=== PATIENT | male | born 1975 | race African-American/Black ===

== ENCOUNTER 2019-08-04 22:59 | Inpatient (IN) | payer SELFPAY ==
--- NOTE | 2019-08-05 00:41 | PDOC ---
History of Present Illness - General Chief Complaint: Pain Stated Complaint: ABD PAIN Time Seen by Provider: 08/05/19 00:41 - History of Present Illness Initial Comments: 08/05/19 00:41 Mr. Membreno is a 44 yo male w/ pmh of NIDDM who presents for evaluation of 1 day history of abdominal pain w/ Nausea and green vomiting multiple times. Reports he has never had this in the past. Denies any other symptoms at this time. Denies travel or sick contacts. The patient denies chest pain, shortness of breath, headache and dizziness. Denies fever, chills, diarrhea and constipation. Denies dysuria, frequency, urgency and hematuria. Past History - Past Medical History Allergies/Adverse Reactions: Allergies Allergy/AdvReac Type Severity Reaction Status Date / Time No Known Allergies Allergy Verified 08/04/19 23:04 Home Medications: Ambulatory Orders Hydrochlorothiazide [Hctz -] 25 mg PO DAILY 07/10/14 Amlodipine Besylate 10 mg PO 08/05/19 COPD: No Diabetes: Yes HTN: Yes - Psycho Social/Smoking Cessation Hx Smoking History: Never smoked Review of Systems - Review of Systems Comments:: 08/05/19 00:41 GENERAL/CONSTITUTIONAL: No fever or chills. No weakness. HEAD, EYES, EARS, NOSE AND THROAT: No change in vision. No ear pain or discharge. No sore throat. CARDIOVASCULAR: No chest pain or shortness of breath RESPIRATORY: No cough, wheezing, or hemoptysis. GASTROINTESTINAL: +Nonspecific abdominal pain w/ N/V as described. No diarrhea or constipation. GENITOURINARY: No dysuria, frequency, or change in urination. MUSCULOSKELETAL: No joint or muscle swelling or pain. No neck or back pain. SKIN: No rash NEUROLOGIC: No headache, vertigo, loss of consciousness, or change in strength/ sensation. ENDOCRINE: No increased thirst. No abnormal weight change HEMATOLOGIC/LYMPHATIC: No anemia, easy bleeding, or history of blood clots. ALLERGIC/IMMUNOLOGIC: No hives or skin allergy. *Physical Exam - Vital Signs Last Vital Signs Temp Pulse Resp BP Pulse Ox 97.3 F L 94 H 18 163/115 H 98 08/04/19 23:02 08/04/19 23:02 08/04/19 23:02 08/04/19 23:02 08/04/19 23:02 - Physical Exam Comments: 08/05/19 00:41 GENERAL: Awake, alert, and fully oriented, in no acute distress HEAD: No signs of trauma, normocephalic, atraumatic EYES: PERRLA, EOMI, sclera anicteric, conjunctiva clear ENT: Auricles normal inspection, hearing grossly normal, nares patent, oropharynx clear without exudates. Moist mucosa NECK: Normal ROM, supple, no lymphadenopathy, JVD, or masses LUNGS: No distress, speaks full sentences, clear to auscultation bilaterally HEART: Regular rate and rhythm, normal S1 and S2, no murmurs, rubs or gallops, peripheral pulses normal and equal bilaterally. ABDOMEN: +Diffuse abdominal TTP. Soft, normoactive bowel sounds. No guarding, no rebound. No masses EXTREMITIES: Normal inspection, Normal range of motion, no edema. No clubbing or cyanosis. NEUROLOGICAL: Cranial nerves II through XII grossly intact. Normal speech, normal gait, no focal sensorimotor deficits SKIN: Warm, Dry, normal turgor, no rashes or lesions noted. ED Treatment Course - LABORATORY CBC & Chemistry Diagram: 08/05/19 10:50 08/05/19 11:48 Medical Decision Making - Medical Decision Making 08/05/19 01:00 Mr. Membreno is a 44 yo male w/ pmh as described who presents for evaluation of symptoms concerning for cholecystitis vs. viral illness vs. appendicitis. Patient evaluated with bedside US which revealed concern for cholecystitis w/ wall thickening and pericholecystic edema. Patient will be evaluated with formal US and laboratory evaluation. Morphine, fluids, zofran ordered for symptomatic relief. 08/05/19 03:47 Patient noted to have elevated Lipase as below. Patient currently pending CT abd /pelvis for r/o surgical process. Patient will be admitted for pancreatitis. 08/05/19 05:38 CT significant for severe acute pancreatitis with secondary duodenal inflammation and possible pancreatic tail necrosis. Laboratory Results - last 24 hr 08/05/19 08/05/19 08/05/19 01:15 01:15 01:15 WBC 12.3 H RBC 6.00 H Hgb 16.8 Hct 52.0 H MCV 86.6 MCH 27.9 MCHC 32.2 RDW 12.4 Plt Count 362 MPV 8.5 Absolute Neuts (auto) 10.7 H Neutrophils % 86.6 H Lymphocytes % 5.5 L Monocytes % 7.1 Eosinophils % 0.0 Basophils % 0.8 Nucleated RBC % 0 PT with INR 12.60 INR 1.07 PTT (Actin FS) 28.3 Sodium 134 L Potassium 4.0 Chloride 93 L Carbon Dioxide 21 Anion Gap 20 H BUN 10.6 Creatinine 1.1 Est GFR (CKD-EPI)AfAm 92.81 Est GFR (CKD-EPI)NonAf 80.08 Random Glucose 385 H Calcium 9.6 Total Bilirubin 3.3 H AST 80 H ALT 90 H Alkaline Phosphatase 85 Total Protein 8.3 H Albumin 4.4 Lipase Blood Type Antibody Screen 08/05/19 08/05/19 01:15 01:15 WBC RBC Hgb Hct MCV MCH MCHC RDW Plt Count MPV Absolute Neuts (auto) Neutrophils % Lymphocytes % Monocytes % Eosinophils % Basophils % Nucleated RBC % PT with INR INR PTT (Actin FS) Sodium Potassium Chloride Carbon Dioxide Anion Gap BUN Creatinine Est GFR (CKD-EPI)AfAm Est GFR (CKD-EPI)NonAf Random Glucose Calcium Total Bilirubin AST ALT Alkaline Phosphatase Total Protein Albumin Lipase 4798 H Blood Type A POSITIVE Antibody Screen Negative Discharge - Discharge Information Problems reviewed: Yes Clinical Impression/Diagnosis: Pancreatitis Qualifiers: Chronicity: acute Pancreatitis type: unspecified pancreatitis type Acute pancreatitis complication: unspecified Qualified Code(s): K85.90 - Acute pancreatitis without necrosis or infection, unspecified - Admission Yes - Follow up/Referral - Patient Discharge Instructions - Post Discharge Activity
[2019-08-05] MEDS ORDERED: morphine CARPU-JECT 4 MG/1 ML DISP.SYRIN IVPUSH ONE ×2 (00:47→03:48)
[2019-08-05] MEDS ORDERED: SODIUM CHLORIDE 1,000 ML IV STA (00:48)
[2019-08-05] MEDS ORDERED: ONDANSETRON 4 MG/2 ML VIAL IVPUSH ONE (00:49)
--- NOTE | 2019-08-05 00:58 | PDOC ---
Attending Attestation - Resident Resident Name: Ildefonso Gonzalez - ED Attending Attestation I have performed the following: I have examined & evaluated the patient, The case was reviewed & discussed with the resident, I agree w/resident's findings & plan - HPI HPI: 08/05/19 03:18 see resident hpi - Physicial Exam PE: 08/05/19 03:18 agree with resident exam - Medical Decision Making 08/05/19 03:18 44 yo male with ruq/midepigastric abd pain labs c/w acute pancreatitis, bedside US suggests biliary disease will admit, npo, ivf analgesics
[2019-08-05] MEDS ORDERED: morphine SULFATE 4 MG/ML VIAL ONE ×2 (01:10→03:51)
[2019-08-05] MEDS ORDERED: ONDANSETRON 4 MG/2 ML VIAL ONE (01:10)
[2019-08-05 01:23] LABS: BASO % 0.8 % (0-2.0); HEMOGLOBIN 16.8 GM/dL (11.7-16.9); LYMPH % 5.5 % (8-40); MCH 27.9 pg (25.7-33.7); MCHC 32.2 g/dl (32.0-35.9); MEAN CELL VOLUME 86.6 fl (80-96); MEAN PLT VOLUME 8.5 fl (7.5-11.1); MONO % 7.1 % (3.8-10.2); NEUT % 86.6 % (42.8-82.8); PLATELET COUNT 362 K/MM3 (134-434); RDW 12.4 % (11.9-15.9); WHITE BLOOD COUNT 12.3 K/mm3 (4.0-10.0)
[2019-08-05 01:32] LABS: INR 1.07 (0.83-1.09); PROTHROMBIN TIME (PATIENT) 12.6 SEC (9.7-13.0)
[2019-08-05 01:34] LABS: ACTIVATED PTT 28.3 SECONDS (25.2-36.5)
[2019-08-05 01:49] LABS: ALBUMIN 4.4 g/dl (3.4-5.0); BILIRUBIN,TOTAL 3.3 mg/dL (0.2-1); BLOOD UREA NITROGEN 10.6 mg/dL (7-18); CALCIUM 9.6 mg/dL (8.5-10.1); CREATININE 1.1 mg/dL (0.55-1.3); TOT PROT 8.3 g/dl (6.4-8.2)
[2019-08-05] MEDS ORDERED: PIPERACILLIN/TAZOB 3.375 GM 3.375 GM in DEXTROSE 5%-WATER - 50 ML IVPB ONE (05:44)
--- NOTE | 2019-08-05 05:55 | PN ---
Teaching Attending Note Name of Resident: Paulo Rodríguez ATTENDING PHYSICIAN STATEMENT I saw and evaluated the patient. I reviewed the resident's note and discussed the case with the resident. I agree with the resident's findings and plan as documented. SUBJECTIVE: Patient is a 44 year old man with PMH of NIDDM and HTN who presents for evaluation of 1 day history of abdominal pain associated with nausea and several episodes vomiting of green material .Reports he has never had this in the past. Denies any other symptoms at this time. Denies travel or sick contacts. The patient denies chest pain, shortness of breath, headache and dizziness. Denies fever, chills, diarrhea and constipation. Denies dysuria, frequency, urgency and hematuria. Denies smoking, alcohol abuse or illicit drug use. Travelled to [facility] 2 months ago. Denies smoking, alcohol abuse or illicit drug use. OBJECTIVE: Alert Vital Signs Period Temp Pulse Resp BP Sys/Burns Pulse Ox Last 24 Hr 97.3 F 80-94 16-18 159-163/106-115 98-99 HEENT: No Jaundice, eye redness or discharge, PERRLA, EOMI. Normocephalic, atraumatic. External ears are normal and hearing is grossly intact. No nasal discharge. Neck: Supple, nontender. No palpable adenopathy or thyromegaly. No JVD Chest: Good effort. Clear to auscultation and percussion. Heart: Regular. No S3, rub or murmur Abdomen: Not distended, soft, diffuse tenderness and no HSM. No rebound or guarding. Normal bowel sounds. Ext: Peripheral pulses intact. No leg edema. Skin: Warm and dry. No petechiae, rash or ecchymosis. Neuro: Alert. Oriented x3. CN 2-12 grossly intact. Sensation grossly intact in all four extremities and DTR are symmetric. Psych: Appropriate mood and affect. Good insight. Current Medications Generic Name Dose Route Start Last Admin Trade Name Freq PRN Reason Stop Dose Admin Piperacillin Sod/Tazobactam 50 mls @ 100 mls/hr 08/05/19 05:44 Sod 3.375 gm/ Dextrose IVPB 08/05/19 06:13 ONCE ONE Protocol Home Medications Medication Instructions Recorded Hydrochlorothiazide [Hctz -] 25 mg PO DAILY 07/10/14 Abnormal Lab Results 09/08/05/19 08/05/19 01:15 01:15 01:15 WBC 12.3 H RBC 6.00 H Hct 52.0 H Absolute Neuts (auto) 10.7 H Neutrophils % 86.6 H Lymphocytes % 5.5 L Sodium 134 L Chloride 93 L Anion Gap 20 H Random Glucose 385 H Total Bilirubin 3.3 H AST 80 H ALT 90 H Total Protein 8.3 H Lipase 4798 H ASSESSMENT AND PLAN: 1. Pancreatitis - Cause unclear. Elevated LFTs suggest gallstone pancreatitis. Results of CT abdomen/pelvis pending. Will get lipid profile, LDH and treat with IV Morphine, LR at 200 ml/hour and Zofran PRN. Consult GI. Trend LFTs and get RUQ sonogram. Leukocytosis may be stress related but will get UA and CXR. Get EKG before additional zofran - we could not locate the EKG done in the ER. Erythrocytosis ,ay signal volume depletion - will repeat CBC after adequate hydration. 2. Uncontrolled DM Had a high anion gap on initial BMP - Repeat BMP pending. If AG still high, will get an ABG. For now, will give stat dose of IV insulin, hold the home diabetes drugs and implement sliding scale insulin regimen. Provide comprehensive diabetes care with patient teaching and counseling about the importance of adherence to prescribed diabetes regimen, euglycemia, eye care and foot care. 3. Uncontrolled Hypertension - Restart suitable outpatient antihypertensive drugs when clinically appropriate - hold HCTZ. 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 Nonpharmacologic measures to control hypertension like weight loss, salt restriction and exercise discussed. Importance of adherence to treatment regimen and attainment of normotension emphasized. 4. DVT prophylaxis - Lovenox 40 mg SQ q 24 hours. 5. Advance directives - Full code
[2019-08-05] MEDS ORDERED: PIPERACILLIN/TAZOB 3.375 GM 3.375 GM/50 ML BAG IVPB ONE (05:58)
[2019-08-05] MEDS ORDERED: LACTATED RINGERS SOLUTION 1,000 ML IV SCH (06:30)
[2019-08-05] MEDS ORDERED: ONDANSETRON 4 MG/2 ML VIAL IVPUSH PRN ×2 (06:33→06:55)
[2019-08-05] MEDS ORDERED: morphine CARPU-JECT 4 MG/1 ML DISP.SYRIN IVPUSH PRN (06:36)
[2019-08-05] MEDS ORDERED: MORPHINE SULFATE 2 MG/ML VIAL IVPUSH PRN (06:54)
[2019-08-05] MEDS ORDERED: INSULIN (NOVOLOG) ASPART 100 UNITS/ML 10ML VIAL SQ ONE (07:59)
--- NOTE | 2019-08-05 08:08 | HP ---
CHIEF COMPLAINT: abdominal pain PCP: unknown HISTORY OF PRESENT ILLNESS: 44 y.o. M PMH HTN, DM2 presenting with 10/10 midepigastric and lower midline abdominal pain. Pain was sudden in onset a few minutes after patient ate some fruit and vegetables yesterday. The pain does not radiate and is very sharp. Patient had 2 episodes bilious but nonbloody emesis yesterday and nausea. Appetite is severely diminished. Pt has not had any traumas, no insect or scorpion bites, no recent infections (URI/flu/ GI viral illnesses)/ gallstones/ alcohol binge drinking episodes. On ROS Denies CP/ SOB/ fevers/ TERRAZAS/ chills/ diarrhea/ weight changes/ bowel changes/ myalgias. ER course was notable for: (1) Morphine 4mg x 2 doses (2) 1 bolus NS (3) Zofran 4mg Recent Travel: recently returned from [facility] 2 months ago PAST MEDICAL HISTORY: as per HPI PAST SURGICAL HISTORY: denies Social History: from [facility], came to [place] in 2000. Sexually active w/ 1 partner. Smoking:denies Alcohol: drinks 1-2 beers on weekends only Drugs: denies Allergies No Known Allergies Allergy (Verified 08/04/19 23:04) HOME MEDICATIONS: Home Medications Medication Instructions Recorded Hydrochlorothiazide [Hctz -] 25 mg PO DAILY 07/10/14 REVIEW OF SYSTEMS CONSTITUTIONAL: Absent: fever, chills, diaphoresis, generalized weakness, malaise, loss of appetite, weight change HEENT: Absent: rhinorrhea, nasal congestion, throat pain, throat swelling, difficulty swallowing, mouth swelling, ear pain, eye pain, visual changes CARDIOVASCULAR: Absent: chest pain, syncope, palpitations, irregular heart rate, lightheadedness , peripheral edema RESPIRATORY: Absent: cough, shortness of breath, dyspnea with exertion, orthopnea, wheezing, stridor, hemoptysis GASTROINTESTINAL: Absent: abdominal pain, abdominal distension, nausea, vomiting, diarrhea, constipation, melena, hematochezia GENITOURINARY: Absent: dysuria, frequency, urgency, hesitancy, hematuria, flank pain, genital pain MUSCULOSKELETAL: Absent: myalgia, arthralgia, joint swelling, back pain, neck pain SKIN: Absent: rash, itching, pallor HEMATOLOGIC/IMMUNOLOGIC: Absent: easy bleeding, easy bruising, lymphadenopathy, frequent infections ENDOCRINE: Absent: unexplained weight gain, unexplained weight loss, heat intolerance, cold intolerance NEUROLOGIC: Absent: headache, focal weakness or paresthesias, dizziness, unsteady gait, seizure, mental status changes, bladder or bowel incontinence PSYCHIATRIC: Absent: anxiety, depression, suicidal or homicidal ideation, hallucinations. PHYSICAL EXAMINATION Vital Signs - 24 hr 08/04/19 08/05/19 23:02 04:59 Temperature 97.3 F L Pulse Rate 94 H Pulse Rate [ 80 Left] Respiratory 18 16 Rate Blood Pressure 163/115 H Blood Pressure 159/106 H [Left Arm] O2 Sat by Pulse 98 99 Oximetry (%) GENERAL: Awake, alert, and fully oriented, in mild distress d/t pain LUNGS: Breath sounds equal, clear to auscultation bilaterally. No wheezes, and no crackles. No accessory muscle use. HEART: Regular rate and rhythm, normal S1 and S2 without murmur, rub or gallop. ABDOMEN: Soft, very tender to palpation in LUQ, LLQ, epigastrium. Non distended. Bowel sounds +. Mcburneys negative. Kittery negative. MUSCULOSKELETAL: Full ROM. UPPER EXTREMITIES: 2+ pulses, warm, well-perfused. No cyanosis. No clubbing. No peripheral edema. LOWER EXTREMITIES: 2+ pulses, warm, well-perfused. No calf tenderness. No peripheral edema. PSYCHIATRIC: Cooperative. Good eye contact. Appropriate mood and affect. SKIN: no rashes or lesions noted Laboratory Results - last 24 hr 08/05/19 08/05/19 08/05/19 01:15 01:15 01:15 WBC 12.3 H RBC 6.00 H Hgb 16.8 Hct 52.0 H MCV 86.6 MCH 27.9 MCHC 32.2 RDW 12.4 Plt Count 362 MPV 8.5 Absolute Neuts (auto) 10.7 H Neutrophils % 86.6 H Lymphocytes % 5.5 L Monocytes % 7.1 Eosinophils % 0.0 Basophils % 0.8 Nucleated RBC % 0 PT with INR 12.60 INR 1.07 PTT (Actin FS) 28.3 Sodium 134 L Potassium 4.0 Chloride 93 L Carbon Dioxide 21 Anion Gap 20 H BUN 10.6 Creatinine 1.1 Est GFR (CKD-EPI)AfAm 92.81 Est GFR (CKD-EPI)NonAf 80.08 Random Glucose 385 H Calcium 9.6 Total Bilirubin 3.3 H AST 80 H ALT 90 H Alkaline Phosphatase 85 Total Protein 8.3 H Albumin 4.4 Lipase Blood Type Antibody Screen 08/05/19 08/05/19 01:15 01:15 WBC RBC Hgb Hct MCV MCH MCHC RDW Plt Count MPV Absolute Neuts (auto) Neutrophils % Lymphocytes % Monocytes % Eosinophils % Basophils % Nucleated RBC % PT with INR INR PTT (Actin FS) Sodium Potassium Chloride Carbon Dioxide Anion Gap BUN Creatinine Est GFR (CKD-EPI)AfAm Est GFR (CKD-EPI)NonAf Random Glucose Calcium Total Bilirubin AST ALT Alkaline Phosphatase Total Protein Albumin Lipase 4798 H Blood Type A POSITIVE Antibody Screen Negative ASSESSMENT/PLAN: 44 y.o. M PMH HTN & DM2 presenting w/ epigastric pain found to have acute pacreatitis on imaging. #Acute pancreatitis -Elevated AST 80/ ALT 90 t. bili 3.3 -Lipase 4798 -WBC 12.3; afebrile -S/p 2 doses 4mg morphine; ordered PRN morphine q4h for pain -PRn zofran for nausea -F/u LDH, lipid profile, UA -IVF: LR @200mL/ hr -S/p 1 dose zosyn 3.375; abx d/c'd -Trend LFTs -F/u RUQ U/S, CXR, Abd/pelvis CT -GI (Dr. Li) consulted #Elevated anion gap likely 2/2 acute pancreatitis -F/u ABG, lactic acid -Glucose 385; concern for DKA -F/u b-hydroxybutyrate, acetone -10U insulin SQ ordered -C/w aggressive hydration #HTN -C/w amlodipine 10mg daily- home med #DM2 -Holding home meds -ISS -BGMs -R/o DKA- workup as above #FEN -IVF: LR @200mL/ hr -Trend lytes -NPO #DVT PPX -LVX 40mg SQ daily Visit type - Emergency Visit Emergency Visit: Yes ED Registration Date: 08/05/19 Care time: The patient presented to the Emergency Department on the above date and was hospitalized for further evaluation of their emergent condition. - New Patient This patient is new to me today: Yes Date on this admission: 08/05/19 - Critical Care Critical Care patient: No ATTENDING PHYSICIAN STATEMENT I saw and evaluated the patient. I reviewed the resident's note and discussed the case with the resident. I agree with the resident's findings and plan as documented. SUBJECTIVE: OBJECTIVE: ASSESSMENT AND PLAN:
[2019-08-05] MEDS ORDERED: INSULIN (NOVOLOG) ASPART 100 UNITS/ML 10ML VIAL ONE (09:41)
[2019-08-05] MEDS ORDERED: ENOXAPARIN NA (PORCINE) 40 MG/0.4 ML DISP.SYRIN SQ ONE (09:41)
[2019-08-05] MEDS ORDERED: amLODIPine BESYLATE 5 MG TABLET (FP) ONE (09:41)
[2019-08-05] MEDS: ENOXAPARIN NA (PORCINE) 40 MG/0.4 ML DISP.SYRIN SQ SCH (09:43)
[2019-08-05] MEDS ORDERED: MORPHINE SULFATE 2 MG/ML VIAL ONE (09:45)
[2019-08-05] MEDS ORDERED: amLODIPine BESYLATE 10 MG TABLET (FP) PO SCH (10:00)
--- NOTE | 2019-08-05 10:49 | PN ---
Progress Note (short form) - Note Progress Note: HPI: 44yo M with h/o HTN, Type 2 DM who presented originally with severe abdominal pain located in the epigastric area rated 10/10. He reports associated nausea and NB/NB vomiting. Pt was in his regular state of health on Friday and woke up with this intense pain which had him seek medical attention. Pt endorses his last meal being comprised of fruit and vegetables, however he did not note any new foods or eating take out. He does admit to binging 5 Guinness beers per day on the weekends; most notably last drink Friday (08/01/19). Upon arrival pt was noted to have necrotic pancreatitis as confirmed by CT A/P. Currently pt has intense abdominal pain unchanged with his morphine currently. He has only vomited once during this admission without any notable blood. He denies any lightheadedness/dizziness, shortness of breath, chest pain, palpitations, diarrhea/constipation, dysuria, hematuria. Vital Signs Period Temp Pulse Resp BP Sys/Burns Pulse Ox Last 24 Hr 97.3 F-98.8 F 79-97 15-20 146-183/100-116 98-99 PE: Gen: Mild distress, awake, alert, oriented HEENT: NC/AT, EOMI, TANJA, sclera anicteric, no xanthelasmas, dry mucosa Neck: No JVD CTA: CTA b/l with no rales or diminished breath sounds at bases. No accessory muscle use. On RA CARD: RRR no murmurs ABD: Soft, no Greys or Cullens signs, distended, tympanitic, TTP in epigastric region, freely reducible umbilical hernia without skin changes, voluntary guarding, no rebound, mild hepatomegaly per percussion, hypoactive BS EXT: No edema, warm, 2+ DP CBC, BMP 08/05/19 10:50 08/05/19 11:48 Hepatic Panel Total Bilirubin 4.0 mg/dL (0.2-1) H 08/05/19 11:48 Direct Bilirubin 2.2 mg/dL (0.0-0.2) H 08/05/19 10:50 AST 51 U/L (15-37) H 08/05/19 11:48 ALT 68 U/L (13-61) H 08/05/19 11:48 Alkaline Phosphatase 78 U/L (45-117) 08/05/19 11:48 Albumin 3.7 g/dl (3.4-5.0) 08/05/19 11:48 Active Medications Enoxaparin Sodium (Lovenox -) 40 mg SQ DAILY [facility] Last Admin: 08/05/19 09:43 Dose: 40 mg Hydralazine HCl (Apresoline Injection -) 10 mg IVPUSH Q6H PRN PRN Reason: HYPERTENSION Last Admin: 08/05/19 20:31 Dose: 10 mg Hydromorphone HCl (Dilaudid Vial -) 2 mg IVPB Q4H PRN PRN Reason: PAIN LEVEL 6-10 Last Admin: 08/05/19 20:16 Dose: 2 mg Lactated Ringer's (Lactated Ringers Solution) 1,000 mls @ 250 mls/hr IV ASDIR [facility] Last Admin: 08/05/19 13:10 Dose: 250 mls/hr Insulin Aspart (Novolog Vial Sliding Scale -) 1 vial SQ Q6HPO [facility]; Protocol Last Admin: 08/05/19 21:11 Dose: 7 unit Ondansetron HCl (Zofran Injection) 4 mg IVPUSH Q4H PRN PRN Reason: NAUSEA A/P: Severe alcoholic pancreatitis with necrosis HTN 2/2 to pain Hyperglycemia Anion gap metabolic acidosis 2/2 lactic acidosis --Increase hydration to LR 250cc/hr given pt's elevate lactic acid without known cardiac complications --Increase pain control to Dilaudid 2mg q4h PRN given his severe pain --Maintain NPO with long-term goal for early feedings when pain has resolved --Gastroenterology consulted --General surgery consulted for necrosis --Monitor serum calcium given at risk for suponification --Zofran to continue q4h PRN nausea --Hyperglycemia given compromised pancreas function --BGM q6h with ISS coverage --Hydralazine 10mg IVP q6h PRN given pt's HTN, however with pain mitigation likely will come down --IF PATIENT SPIKES FEVER: will have to cover with carbapenem due to high likelihood of infection FEN: Fluids: LR@250cc/hr Electrolyte abnormalities: None Nutrition: NPO strictly PPX: DVT - Lovenox SQ Dispo: Monitor on telemetry given severe pancreatitis Case discussed with Dr. Rufino Chan, DO - IM PGY-3
[2019-08-05 11:16] LABS: HEMOGLOBIN 16.4 GM/dL (11.7-16.9); MCH 28.2 pg (25.7-33.7); MCHC 32.2 g/dl (32.0-35.9); MEAN CELL VOLUME 87.6 fl (80-96); MEAN PLT VOLUME 8.8 fl (7.5-11.1); PLATELET COUNT 327 K/MM3 (134-434); RBC 5.83 M/mm3 (4.00-5.60); RDW 12.5 % (11.9-15.9); WHITE BLOOD COUNT 15.2 K/mm3 (4.0-10.0)
[2019-08-05 11:47] LABS: CHOLESTEROL 105 mg/dL (50-200); HDL CHOLESTEROL 21 mg/dL (40-60); LDL CHOLESTEROL (ONLY SJRH) 41 mg/dL (5-100); TRIGLYCERIDES 256 mg/dL (0-150)
[2019-08-05] MEDS ORDERED: HYDROmorphone HCl 2 MG/ML VIAL IVPUSH ONE (11:51)
[2019-08-05 12:03] LABS: MAGNESIUM 2.1 mg/dL (1.8-2.4); PHOSPHOROUS 5.1 mg/dL (2.5-4.9)
[2019-08-05 12:31] LABS: ALBUMIN 3.7 g/dl (3.4-5.0); BLOOD UREA NITROGEN 11.2 mg/dL (7-18); CALCIUM 8.9 mg/dL (8.5-10.1); CREATININE 1.1 mg/dL (0.55-1.3); POTASSIUM 3.5 mmol/L (3.5-5.1); TOT PROT 7.2 g/dl (6.4-8.2)
[2019-08-05] MEDS: LACTATED RINGERS SOLUTION 1,000 ML IV SCH (13:10)
[2019-08-05] MEDS ORDERED: HYDROmorphone HCl 2 MG/ML VIAL ONE (13:13)
[2019-08-05] MEDS: INSULIN SLIDING SCALE (NOVOLOG) 1 VIAL SQ SCH ×2 (13:33→21:11)
--- NOTE | 2019-08-05 13:41 | CON.GI ---
Consult Consult Specialty:: GI Referred by:: Hospitalist Service Reason for Consultation:: Pancreatitis - History of Present Illness Chief Complaint: Abdominal pain History of Present Illness: 44M admitted through [facility] for evaluation of abdominal pain. He states that he was in his USOH up until Fri, when he was awoken by severe, midabdominal pain. The pain was constant, sharp and non-radiating. He had never experienced similar episodes in the past. It became more intense prompting eval in the ED. In the ED, triage vitals revealed T: 97.3 P: 74 BP: 163/115. He had an US performed revealing a mildly hyperechoic liver, enlarged pancreas and gallbladder free of stones with biliary ductal dilatation. He had a CT scan of the abdomen with IV contrast revealed changes c/w acute pancreatitis without acute fluid collections and a fatty liver. He denies prior episodes of pancreatitis and states that he drinks 5 bottles of guin[place]ioVIP beer on the weekends. He takes metformin x 3 years and has been on Amlodipine for HTN. He denies OTC medications or herbal supplements. He denies more alcohol consumption than this. There is no family history of pancreatitis. Pain persists, slightly improved than on admission. 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year[place] 1999 History of Recent Travel: Yes ([facility] 04/28) Home Medications - Allergies Allergies/Adverse Reactions: Allergies Allergy/AdvReac Type Severity Reaction Status Date / Time No Known Allergies Allergy Verified 08/04/19 23:04 - Home Medications Home Medications: Ambulatory Orders Hydrochlorothiazide [Hctz -] 25 mg PO DAILY 07/10/14 Amlodipine Besylate 10 mg PO 08/05/19 Family Medical History Other Family History: Father: : 80: Diabetic complications. Mother: Alive: healthy. Siblings: 1 brother, 2 sisters: healthy. Children: 1 son, 1 daughter: healthy. No h/o colon cancer / pancreatitis Review of Systems - Review of Systems Constitutional: denies: Chills Cardiovascular: denies: Chest Pain Respiratory: denies: SOB Gastrointestinal: reports: Abdominal Pain, Nausea. denies: Diarrhea, Rectal Bleeding, Vomiting Physical Exam-GI Vital Signs: Vital Signs Temperature 97.3 F 08/05/19 13:34 Pulse Rate 74 08/05/19 13:34 Respiratory Rate 16 08/05/19 13:34 Blood Pressure 163/115 H 08/05/19 13:34 O2 Sat by Pulse Oximetry (%) 99 08/05/19 13:34 Constitutional: Yes: Calm Eyes: No: Sclera Icterus Cardiovascular: Yes: Regular Rate and Rhythm, Murmur Respiratory: Yes: CTA Bilaterally Gastrointestinal Inspection: No: Distention, Scars ...Auscultate: Yes: Normoactive Bowel Sounds ...Palpate: Yes: Guarding, Soft, Tenderness (TTP mid abdomen) ...Percussion: No: Tympanitic Edema: No (No LE edema) Labs: CBC, BMP 08/05/19 10:50 08/05/19 11:48 INR, PTT INR 1.07 (0.83-1.09) 08/05/19 01:15 Problem List - Problems (1) Pancreatitis Assessment/Plan: Acute Interstitial Pancreatitis: Unclear etiology at this time. ? Alcohol induced. Despite elevated bilirubin, No stones on US or ductal dilatation to suggest biliary etiology. Triglycerides of 256 not suggestive of hypertriglyceridemia as causative process. Metformin / amlodipine not common offending agents. Advise: Continued aggressive IV hydration with need for blood pressure control. Currently receiving lactated ringers @ 250cc/hr Pain management NPO for now except meds MRCP to further evaluate biliary tract Worsening pain / hemodynamics, low threshold for transfer to ICU Code(s): K85.90 - ACUTE PANCREATITIS WITHOUT NECROSIS OR INFECTION, UNSP Qualifiers: Chronicity: acute Pancreatitis type: unspecified pancreatitis type Acute pancreatitis complication: unspecified Qualified Code(s): K85.90 - Acute pancreatitis without necrosis or infection, unspecified
[2019-08-05 14:36] LABS: ARTERIAL BLD GAS O2 SATURATION 94.7 % (95-98); ARTERIAL BLOOD GAS BASE EXCESS -4.5 meq/l (-2-2); ARTERIAL BLOOD GAS PCO2 38.9 mmHg (35-45); ARTERIAL BLOOD GAS PO2 81.1 mmHg (80-100); ARTERIAL BLOOD GAS pH 7.34 (7.35-7.45)
[2019-08-05 14:38] LABS: ALLENS TEST POSITIVE
--- NOTE | 2019-08-05 15:07 | CONSULT ---
- Consultation REQUESTING PROVIDER: CONSULT REQUEST: We have been asked to surgically evaluate this patient for pancreatitis. PCP:Nhi Joy MD HISTORY OF PRESENT ILLNESS: 44M admitted through [facility] for evaluation of abdominal pain. He states that he was in his usual state of health up until Fri, when he was awoken by severe, midabdominal pain and vomiting. The pain was constant, sharp and non-radiating. The patient states he never experienced similar episodes in the past. It became more intense prompting eval in the ED. In the ED, triage vitals revealed T: 97.3 P: 74 BP: 163/115. He had an US performed revealing a mildly hyperechoic liver, enlarged pancreas and gallbladder free of stones with biliary ductal dilatation. He had a CT scan of the abdomen with IV contrast revealed changes c/w acute pancreatitis without acute fluid collections and a fatty liver. He denies prior episodes of pancreatitis and states that he drinks 5 bottles of guinness beer on the weekends only. He takes metformin x 3 years and has been on Amlodipine for HTN. He denies OTC medications or herbal supplements. He denies more alcohol consumption than this. There is no family history of pancreatitis. Pain persists, slightly improved than on admission. 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year[place] 1999 History of Recent Travel: Yes ([facility] 04/28) Home Medications - Allergies Allergies/Adverse Reactions: Allergies Allergy/AdvReac Type Severity Reaction Status Date / Time No Known Allergies Allergy Verified 08/04/19 23:04 - Home Medications Home Medications: Ambulatory Orders Hydrochlorothiazide [Hctz -] 25 mg PO DAILY 07/10/14 Amlodipine Besylate 10 mg PO 08/05/19 Family Medical History Other Family History: Father: : 80: Diabetic complications. Mother: Alive: healthy. Siblings: 1 brother, 2 sisters: healthy. Children: 1 son, 1 daughter: healthy. No h/o colon cancer / pancreatitis Review of Systems - Review of Systems Constitutional: denies: Chills Cardiovascular: denies: Chest Pain Respiratory: denies: SOB Gastrointestinal: reports: Abdominal Pain, Nausea with episodes of vomiting. denies: Diarrhea, Rectal Bleeding, Vomiting Physical Exam-GI Vital Signs: Vital Signs Temperature 97.3 F 08/05/19 13:34 Pulse Rate 74 08/05/19 13:34 Respiratory Rate 16 08/05/19 13:34 Blood Pressure 163/115 H 08/05/19 13:34 O2 Sat by Pulse Oximetry (%) 99 08/05/19 13:34 Constitutional:A&Ox3, NAD Eyes: Sclera non-Icterus Respiratory: unlabored resp on RA ABD: obese, ND, no Scars or lesions, ...Auscultate: hypoactive Bowel Sounds ...Palpate: Yes: Guarding, Soft, Focal TTP over LUQ and epigastrium with + Guarding ...Percussion: No: Tympanitic Edema: No (No LE edema) Labs: 08/05/19 08/05/19 08/05/19 10:50 10:50 11:48 WBC RBC Hct Absolute Neuts (auto) Neutrophils % Lymphocytes % ABG pH ABG HCO3 ABG O2 Sat (Measured) ABG Base Excess Sodium 134 L Chloride Carbon Dioxide 18 L Anion Gap 18 H Random Glucose 362 H Lactic Acid 2.9 H* Phosphorus Total Bilirubin 4.0 H Direct Bilirubin 2.2 H AST 51 H ALT 68 H Total Protein Triglycerides HDL Cholesterol Lipase 08/05/19 13:32 WBC RBC Hct Absolute Neuts (auto) Neutrophils % Lymphocytes % ABG pH 7.34 L ABG HCO3 20.4 L ABG O2 Sat (Measured) 94.7 L ABG Base Excess -4.5 L Sodium Chloride Carbon Dioxide Anion Gap Random Glucose Lactic Acid Phosphorus Total Bilirubin Direct Bilirubin AST ALT Total Protein Triglycerides HDL Cholesterol Lipase CT abdomen and pelvis with contrast consistent with acute pancreatitis with moderate peripancreatic fluid. No evidence of pseudocyst or abscess formation. Diffuse fatty infiltration of liver. Problem List - Problems (1) Pancreatitis Assessment/Plan: 44yo with acute pancreatitis. No indication for surgical intervention. -NPO -IVF -ABX -trend labs -OOB as tolerated - Pain control -GI and DVT prophylaxis - Surgery to follow Evaluation and plan discussed with Dr Kingsley. Code(s): K85.90 - ACUTE PANCREATITIS WITHOUT NECROSIS OR INFECTION, UNSP Qualifiers: Chronicity: acute Pancreatitis type: unspecified pancreatitis type Acute pancreatitis complication: unspecified Qualified Code(s): K85.90 - Acute pancreatitis without necrosis or infection, unspecified
--- NOTE | 2019-08-05 18:15 | PN ---
Teaching Attending Note Name of Resident: Go Chna ATTENDING PHYSICIAN STATEMENT I saw and evaluated the patient. I reviewed the resident's note and discussed the case with the resident. I agree with the resident's findings and plan as documented with exceptions below. SUBJECTIVE: Patient seen and examined. abdominal pain, nausea, reports drinking 5-6 beers over the weekend. No recent medication changes or concerns. OBJECTIVE: Vital Signs Period Temp Pulse Resp BP Sys/Burns Pulse Ox Last 24 Hr 97.3 F-98.6 F 79-97 15-18 150-183/103-116 98-99 Intake & Output 08/02/19 08/03/19 08/04/19 08/05/19 23:59 23:59 23:59 23:59 Weight 175 lb General: lying in bed, uncomfortable from pain Neck: soft, supple CVS:S1S2 regular Chest: Decreased breath sounds at bases, no rales or wheezing Abdomen: markedly distended, unable to appreciate bowel sounds, left sided abdominal tenderness, more in epigastrium, LUQ, no rigidity, or involuntary guarding, soft Extremities: no edema Home Medications Medication Instructions Recorded Hydrochlorothiazide [Hctz -] 25 mg PO DAILY 07/10/14 Amlodipine Besylate 10 mg PO 08/05/19 Active Medications Amlodipine Besylate (Norvasc -) 10 mg PO DAILY [facility] Last Admin: 08/05/19 09:44 Dose: 10 mg Enoxaparin Sodium (Lovenox -) 40 mg SQ DAILY [facility] Last Admin: 08/05/19 09:43 Dose: 40 mg Hydromorphone HCl (Dilaudid Vial -) 2 mg IVPB Q4H PRN PRN Reason: PAIN LEVEL 6-10 Lactated Ringer's (Lactated Ringers Solution) 1,000 mls @ 250 mls/hr IV ASDIR [facility] Last Admin: 08/05/19 13:10 Dose: 250 mls/hr Insulin Aspart (Novolog Vial Sliding Scale -) 1 vial SQ Q6HPO [facility]; Protocol Last Admin: 08/05/19 13:33 Dose: 7 unit Ondansetron HCl (Zofran Injection) 4 mg IVPUSH Q4H PRN PRN Reason: NAUSEA Laboratory Results - last 24 hr 08/05/19 08/05/19 08/05/19 01:15 01:15 01:15 WBC 12.3 H RBC 6.00 H Hgb 16.8 Hct 52.0 H MCV 86.6 MCH 27.9 MCHC 32.2 RDW 12.4 Plt Count 362 MPV 8.5 Absolute Neuts (auto) 10.7 H Neutrophils % 86.6 H Lymphocytes % 5.5 L Monocytes % 7.1 Eosinophils % 0.0 Basophils % 0.8 Nucleated RBC % 0 PT with INR 12.60 INR 1.07 PTT (Actin FS) 28.3 Anticoagulation Therapy Puncture Site ABG pH ABG pCO2 at Pt Temp ABG pO2 at Pt Temp ABG HCO3 ABG O2 Sat (Measured) ABG O2 Content ABG Base Excess Magdiel Test O2 Delivery Device Oxygen Flow Rate Vent Mode Vent Rate Mechanical Rate Pressure Support Vent Sodium 134 L Potassium 4.0 Chloride 93 L Carbon Dioxide 21 Anion Gap 20 H BUN 10.6 Creatinine 1.1 Est GFR (CKD-EPI)AfAm 92.81 Est GFR (CKD-EPI)NonAf 80.08 POC Glucometer Random Glucose 385 H Lactic Acid Calcium 9.6 Phosphorus Magnesium Total Bilirubin 3.3 H Direct Bilirubin AST 80 H ALT 90 H Alkaline Phosphatase 85 LD Total Total Protein 8.3 H Albumin 4.4 Triglycerides Cholesterol Total LDL Cholesterol HDL Cholesterol Lipase Acetone, Qual Blood Type Antibody Screen 08/05/19 08/05/19 08/05/19 01:15 01:15 09:37 WBC RBC Hgb Hct MCV MCH MCHC RDW Plt Count MPV Absolute Neuts (auto) Neutrophils % Lymphocytes % Monocytes % Eosinophils % Basophils % Nucleated RBC % PT with INR INR PTT (Actin FS) Anticoagulation Therapy Puncture Site ABG pH ABG pCO2 at Pt Temp ABG pO2 at Pt Temp ABG HCO3 ABG O2 Sat (Measured) ABG O2 Content ABG Base Excess Magdiel Test O2 Delivery Device Oxygen Flow Rate Vent Mode Vent Rate Mechanical Rate Pressure Support Vent Sodium Potassium Chloride Carbon Dioxide Anion Gap BUN Creatinine Est GFR (CKD-EPI)AfAm Est GFR (CKD-EPI)NonAf POC Glucometer 382 Random Glucose Lactic Acid Calcium Phosphorus Magnesium Total Bilirubin Direct Bilirubin AST ALT Alkaline Phosphatase LD Total Total Protein Albumin Triglycerides Cholesterol Total LDL Cholesterol HDL Cholesterol Lipase 4798 H Acetone, Qual Blood Type A POSITIVE Antibody Screen Negative 08/05/19 08/05/19 08/05/19 09:45 10:50 10:50 WBC 15.2 H RBC 5.83 H Hgb 16.4 Hct 51.0 H MCV 87.6 MCH 28.2 MCHC 32.2 RDW 12.5 Plt Count 327 MPV 8.8 Absolute Neuts (auto) Neutrophils % Lymphocytes % Monocytes % Eosinophils % Basophils % Nucleated RBC % PT with INR INR PTT (Actin FS) Anticoagulation Therapy Puncture Site ABG pH ABG pCO2 at Pt Temp ABG pO2 at Pt Temp ABG HCO3 ABG O2 Sat (Measured) ABG O2 Content ABG Base Excess Magdiel Test O2 Delivery Device Oxygen Flow Rate Vent Mode Vent Rate Mechanical Rate Pressure Support Vent Sodium Potassium Chloride Carbon Dioxide Anion Gap BUN Creatinine Est GFR (CKD-EPI)AfAm Est GFR (CKD-EPI)NonAf POC Glucometer Random Glucose Lactic Acid Calcium Phosphorus 5.1 H Magnesium 2.1 Total Bilirubin Direct Bilirubin AST ALT Alkaline Phosphatase LD Total Total Protein Albumin Triglycerides Cholesterol Total LDL Cholesterol HDL Cholesterol Lipase Acetone, Qual Blood Type A POSITIVE Antibody Screen 08/05/19 08/05/19 08/05/19 10:50 10:50 10:50 WBC RBC Hgb Hct MCV MCH MCHC RDW Plt Count MPV Absolute Neuts (auto) Neutrophils % Lymphocytes % Monocytes % Eosinophils % Basophils % Nucleated RBC % PT with INR INR PTT (Actin FS) Anticoagulation Therapy Puncture Site ABG pH ABG pCO2 at Pt Temp ABG pO2 at Pt Temp ABG HCO3 ABG O2 Sat (Measured) ABG O2 Content ABG Base Excess Magdiel Test O2 Delivery Device Oxygen Flow Rate Vent Mode Vent Rate Mechanical Rate Pressure Support Vent Sodium Potassium Chloride Carbon Dioxide Anion Gap BUN Creatinine Est GFR (CKD-EPI)AfAm Est GFR (CKD-EPI)NonAf POC Glucometer Random Glucose Lactic Acid Calcium Phosphorus Magnesium Total Bilirubin Direct Bilirubin AST ALT Alkaline Phosphatase LD Total 176 Total Protein Albumin Triglycerides 256 H Cholesterol 105 Total LDL Cholesterol 41 HDL Cholesterol 21 L Lipase Acetone, Qual Positive small 1+ Blood Type Antibody Screen 08/05/19 08/05/19 08/05/19 10:50 10:50 11:48 WBC RBC Hgb Hct MCV MCH MCHC RDW Plt Count MPV Absolute Neuts (auto) Neutrophils % Lymphocytes % Monocytes % Eosinophils % Basophils % Nucleated RBC % PT with INR INR PTT (Actin FS) Anticoagulation Therapy Puncture Site ABG pH ABG pCO2 at Pt Temp ABG pO2 at Pt Temp ABG HCO3 ABG O2 Sat (Measured) ABG O2 Content ABG Base Excess Magdiel Test O2 Delivery Device Oxygen Flow Rate Vent Mode Vent Rate Mechanical Rate Pressure Support Vent Sodium 134 L Potassium 3.5 Chloride 98 Carbon Dioxide 18 L Anion Gap 18 H BUN 11.2 Creatinine 1.1 Est GFR (CKD-EPI)AfAm 92.81 Est GFR (CKD-EPI)NonAf 80.08 POC Glucometer Random Glucose 362 H Lactic Acid 2.9 H* Calcium 8.9 Phosphorus Magnesium Total Bilirubin 4.0 H Direct Bilirubin 2.2 H AST 51 H ALT 68 H Alkaline Phosphatase 78 LD Total Total Protein 7.2 Albumin 3.7 Triglycerides Cholesterol Total LDL Cholesterol HDL Cholesterol Lipase Acetone, Qual Blood Type Antibody Screen 08/05/19 08/05/19 08/05/19 13:17 13:32 15:00 WBC RBC Hgb Hct MCV MCH MCHC RDW Plt Count MPV Absolute Neuts (auto) Neutrophils % Lymphocytes % Monocytes % Eosinophils % Basophils % Nucleated RBC % PT with INR INR PTT (Actin FS) Anticoagulation Therapy No Result Required. Puncture Site Left radial ABG pH 7.34 L ABG pCO2 at Pt Temp 38.9 ABG pO2 at Pt Temp 81.1 ABG HCO3 20.4 L ABG O2 Sat (Measured) 94.7 L ABG O2 Content 20.9 ABG Base Excess -4.5 L Magdiel Test Positive O2 Delivery Device No Result Required. Oxygen Flow Rate No Vent Mode No Result Required. Vent Rate No Result Required. Mechanical Rate No Result Required. Pressure Support Vent No Result Required. Sodium Potassium Chloride Carbon Dioxide Anion Gap BUN Creatinine Est GFR (CKD-EPI)AfAm Est GFR (CKD-EPI)NonAf POC Glucometer 345 Random Glucose Lactic Acid 2.3 H* Calcium Phosphorus Magnesium Total Bilirubin Direct Bilirubin AST ALT Alkaline Phosphatase LD Total Total Protein Albumin Triglycerides Cholesterol Total LDL Cholesterol HDL Cholesterol Lipase Acetone, Qual Blood Type Antibody Screen CT A/P results reviewed ASSESSMENT AND PLAN: 44 yom with PMHx of HTN, NIDDM admitted with severe acute pancreatitis, suspect alcoholic. -Severe acute pancreatitis, suspect alcoholic -Suspected early pancreatic tail necrosis -Metabolic acidosis, from above/lactic acidosis - Abnormal LFTs, ?alcohol related, -r/o biliary etiology given hyperbilirubinemia -Hypertensive urgency, suspect from pain, unable to get oral meds -SIRS -NIDDM Plan: Close monitoring of hemodynamics, serial exams Low threshold for abx if fevers. Aggressive IVF Trend chemistry, LFTs, coags. GI/Surgery input noted MRCP. Hydralazine prn, hold po meds Change to dilaudid for pain control. Abdominal xray. BGM/ISS. DVTPPX lovenox Dispo pending clinical improvement. discussed with patient. -
[2019-08-05 18:55] VITALS: BMI 27.2
[2019-08-05] MEDS: HYDROmorphone HCl 2 MG/ML VIAL IVPB PRN (20:16)
[2019-08-05] MEDS: hydrALAZINE HCL 20 MG/ML VIAL IVPUSH PRN (20:31)
[2019-08-06] MEDS: INSULIN SLIDING SCALE (NOVOLOG) 1 VIAL SQ SCH ×4 (01:01→19:31)
[2019-08-06] MEDS: hydrALAZINE HCL 20 MG/ML VIAL IVPUSH PRN ×2 (04:23→15:30)
[2019-08-06] MEDS ORDERED: amLODIPine BESYLATE 10 MG TABLET (FP) PO ONE (06:06)
[2019-08-06 07:40] LABS: INR 1.02 (0.83-1.09)
[2019-08-06 07:41] LABS: BASO % 0.4 % (0-2.0); HEMATOCRIT 46.7 % (35.4-49); HEMOGLOBIN 15.4 GM/dL (11.7-16.9); LYMPH % 6.2 % (8-40); MCH 28.7 pg (25.7-33.7); MCHC 33.1 g/dl (32.0-35.9); MEAN CELL VOLUME 86.8 fl (80-96); MEAN PLT VOLUME 9.1 fl (7.5-11.1); MONO % 9.6 % (3.8-10.2); NEUT % 83.8 % (42.8-82.8); PLATELET COUNT 286 K/MM3 (134-434); RBC 5.37 M/mm3 (4.00-5.60); RDW 12.8 % (11.9-15.9); WHITE BLOOD COUNT 15.2 K/mm3 (4.0-10.0)
[2019-08-06 08:00] LABS: ALBUMIN 3.1 g/dl (3.4-5.0); BILIRUBIN,DIRECT 1.6 mg/dL (0.0-0.2); BILIRUBIN,TOTAL 2.5 mg/dL (0.2-1); BLOOD UREA NITROGEN 10.9 mg/dL (7-18); CALCIUM 8.5 mg/dL (8.5-10.1); POTASSIUM 3.8 mmol/L (3.5-5.1); TOT PROT 6.1 g/dl (6.4-8.2)
--- NOTE | 2019-08-06 09:02 | PN ---
Progress Note (short form) - Note Progress Note: HPI: Pt reports improvement in pain yesterday. No events overnight with LA decreased on labwork. Pt reports he is starting to feel hungry and he is feeling less thirsty than prior. Denies any fever/chills, shortness of breath, chest pain, palpitations, lower extremity edema, diarrhea/constipation. Vital Signs Period Temp Pulse Resp BP Sys/Burns Pulse Ox Last 24 Hr 97.3 F-98.8 F 79-97 15-20 146-183/100-116 98-99 PE: Gen: NAD, awake, alert, orientedx3 HEENT: NC/AT, EOMI, TANJA, sclera anicteric, no xanthelasmas, MMM Neck: No JVD CTA: CTA b/l with no rales. No accessory muscle use. On RA CARD: RRR no murmurs ABD: Soft, less distention, hypoactive BS, tympanitic, TTP in epigastric region (improved), reducible umbilical hernia again noted, no guarding, no rebound EXT: No edema, warm, 2+ DP pulses b/l CBC, BMP 08/06/19 05:20 08/06/19 05:20 Hepatic Panel Total Bilirubin 2.5 mg/dL (0.2-1) H 08/06/19 05:20 Direct Bilirubin 1.6 mg/dL (0.0-0.2) H 08/06/19 05:20 AST 38 U/L (15-37) H 08/06/19 05:20 ALT 44 U/L (13-61) 08/06/19 05:20 Alkaline Phosphatase 68 U/L (45-117) 08/06/19 05:20 Albumin 3.1 g/dl (3.4-5.0) L 08/06/19 05:20 Active Medications Amlodipine Besylate (Norvasc -) 10 mg PO DAILY [facility] Enoxaparin Sodium (Lovenox -) 40 mg SQ DAILY [facility] Last Admin: 08/05/19 09:43 Dose: 40 mg Hydralazine HCl (Apresoline Injection -) 10 mg IVPUSH Q6H PRN PRN Reason: HYPERTENSION Last Admin: 08/06/19 04:23 Dose: 10 mg Hydromorphone HCl (Dilaudid Vial -) 2 mg IVPB Q4H PRN PRN Reason: PAIN LEVEL 6-10 Last Admin: 08/05/19 20:16 Dose: 2 mg Lactated Ringer's (Lactated Ringers Solution) 1,000 mls @ 250 mls/hr IV ASDIR [facility] Last Admin: 08/05/19 13:10 Dose: 250 mls/hr Insulin Aspart (Novolog Vial Sliding Scale -) 1 vial SQ Q6HPO [facility]; Protocol Last Admin: 08/06/19 06:54 Dose: 3 unit Ondansetron HCl (Zofran Injection) 4 mg IVPUSH Q4H PRN PRN Reason: NAUSEA A/P: Severe alcoholic pancreatitis with necrosis HTN 2/2 to pain Hyperglycemia Anion gap metabolic acidosis 2/2 lactic acidosis --Pt's abdominal pain markedly controlled compared to yesterday --Lactic acidosis is resolving --LFT's downtrending in addition to TB and DB --Would continue LR@250cc/hr (pt lung exam still CTA) with serial lung exams --Maintain NPO until pain is improved on exam --Gastroenterology recs appreciated: --MRCP for evaluation of bile ducts --Serum Ca and Hct remain WNL 2 days since admission --Hyperglycemia better controlled today --BGM q6h with ISS to continue --Hydralazine 10mg IVP q6h PRN for HTN --Monitor fever curves FEN: Fluids: LR@250cc/hr Electrolyte abnormalities: None Nutrition: NPO PPX: DVT - Lovenox SQ Dispo: Monitor on telemetry given severe pancreatitis Case discussed with Dr. Rufino Chan, DO - IM PGY-3
[2019-08-06] MEDS: HYDROmorphone HCl 2 MG/ML VIAL IVPB PRN ×2 (09:50→20:39)
[2019-08-06] MEDS: ENOXAPARIN NA (PORCINE) 40 MG/0.4 ML DISP.SYRIN SQ SCH (10:48)
--- NOTE | 2019-08-06 11:42 | PN ---
Teaching Attending Note Name of Resident: Go Chan ATTENDING PHYSICIAN STATEMENT I saw and evaluated the patient. I reviewed the resident's note and discussed the case with the resident. I agree with the resident's findings and plan as documented with exceptions below. SUBJECTIVE: Patient seen and examined. abdominal pain after coming back from xray, was better this AM. no further vomiting. nausea improved. No new fevers/chills or concerns otherwise. OBJECTIVE: Vital Signs Period Temp Pulse Resp BP Sys/Burns Pulse Ox Last 24 Hr 98.2 F-98.9 F 83-106 16-20 146-185/99-120 98-100 Intake & Output 08/03/19 08/04/19 08/05/19 08/06/19 23:59 23:59 23:59 23:59 Output Total 325 Balance -325 Weight 175 lb 179 lb General: lying in bed, mild distress from pain Neck: soft, supple Chest:decreased breath sounds at bases, no rales or wheezing Abdomen:distended, voluntary guarding, no rigidity, pos bowel sounds, tenderness left abdomen, most prominent in epigastrium, LUQ Extremities: no pedal edema Home Medications Medication Instructions Recorded Hydrochlorothiazide [Hctz -] 25 mg PO DAILY 07/10/14 Amlodipine Besylate 10 mg PO DAILY 08/05/19 Active Medications Amlodipine Besylate (Norvasc -) 10 mg PO DAILY [facility] Enoxaparin Sodium (Lovenox -) 40 mg SQ DAILY [facility] Last Admin: 08/06/19 10:48 Dose: 40 mg Hydralazine HCl (Apresoline Injection -) 10 mg IVPUSH Q6H PRN PRN Reason: HYPERTENSION Last Admin: 08/06/19 04:23 Dose: 10 mg Hydromorphone HCl (Dilaudid Vial -) 2 mg IVPB Q4H PRN PRN Reason: PAIN LEVEL 6-10 Last Admin: 08/06/19 09:50 Dose: 2 mg Lactated Ringer's (Lactated Ringers Solution) 1,000 mls @ 250 mls/hr IV ASDIR [facility] Last Admin: 08/05/19 13:10 Dose: 250 mls/hr Insulin Aspart (Novolog Vial Sliding Scale -) 1 vial SQ Q6HPO [facility]; Protocol Last Admin: 08/06/19 06:54 Dose: 3 unit Ondansetron HCl (Zofran Injection) 4 mg IVPUSH Q4H PRN PRN Reason: NAUSEA Laboratory Results - last 24 hr 08/05/19 08/05/19 08/05/19 10:50 10:50 10:50 WBC RBC Hgb Hct MCV MCH MCHC RDW Plt Count MPV Absolute Neuts (auto) Neutrophils % Lymphocytes % Monocytes % Eosinophils % Basophils % Nucleated RBC % PT with INR INR Anticoagulation Therapy Puncture Site ABG pH ABG pCO2 at Pt Temp ABG pO2 at Pt Temp ABG HCO3 ABG O2 Sat (Measured) ABG O2 Content ABG Base Excess Magdiel Test O2 Delivery Device Oxygen Flow Rate Vent Mode Vent Rate Mechanical Rate Pressure Support Vent Sodium Potassium Chloride Carbon Dioxide Anion Gap BUN Creatinine Est GFR (CKD-EPI)AfAm Est GFR (CKD-EPI)NonAf POC Glucometer Random Glucose Lactic Acid Calcium Phosphorus 5.1 H Magnesium 2.1 Total Bilirubin Direct Bilirubin AST ALT Alkaline Phosphatase LD Total 176 C-Reactive Protein Total Protein Albumin Triglycerides Cholesterol Total LDL Cholesterol HDL Cholesterol Acetone, Qual Positive small 1+ 08/05/19 08/05/19 08/05/19 10:50 10:50 10:50 WBC RBC Hgb Hct MCV MCH MCHC RDW Plt Count MPV Absolute Neuts (auto) Neutrophils % Lymphocytes % Monocytes % Eosinophils % Basophils % Nucleated RBC % PT with INR INR Anticoagulation Therapy Puncture Site ABG pH ABG pCO2 at Pt Temp ABG pO2 at Pt Temp ABG HCO3 ABG O2 Sat (Measured) ABG O2 Content ABG Base Excess Magdiel Test O2 Delivery Device Oxygen Flow Rate Vent Mode Vent Rate Mechanical Rate Pressure Support Vent Sodium Potassium Chloride Carbon Dioxide Anion Gap BUN Creatinine Est GFR (CKD-EPI)AfAm Est GFR (CKD-EPI)NonAf POC Glucometer Random Glucose Lactic Acid 2.9 H* Calcium Phosphorus Magnesium Total Bilirubin Direct Bilirubin 2.2 H AST ALT Alkaline Phosphatase LD Total C-Reactive Protein Total Protein Albumin Triglycerides 256 H Cholesterol 105 Total LDL Cholesterol 41 HDL Cholesterol 21 L Acetone, Qual 08/05/19 08/05/19 08/05/19 11:48 13:17 13:32 WBC RBC Hgb Hct MCV MCH MCHC RDW Plt Count MPV Absolute Neuts (auto) Neutrophils % Lymphocytes % Monocytes % Eosinophils % Basophils % Nucleated RBC % PT with INR INR Anticoagulation Therapy No Result Required. Puncture Site Left radial ABG pH 7.34 L ABG pCO2 at Pt Temp 38.9 ABG pO2 at Pt Temp 81.1 ABG HCO3 20.4 L ABG O2 Sat (Measured) 94.7 L ABG O2 Content 20.9 ABG Base Excess -4.5 L Magdiel Test Positive O2 Delivery Device No Result Required. Oxygen Flow Rate No Vent Mode No Result Required. Vent Rate No Result Required. Mechanical Rate No Result Required. Pressure Support Vent No Result Required. Sodium 134 L Potassium 3.5 Chloride 98 Carbon Dioxide 18 L Anion Gap 18 H BUN 11.2 Creatinine 1.1 Est GFR (CKD-EPI)AfAm 92.81 Est GFR (CKD-EPI)NonAf 80.08 POC Glucometer 345 Random Glucose 362 H Lactic Acid Calcium 8.9 Phosphorus Magnesium Total Bilirubin 4.0 H Direct Bilirubin AST 51 H ALT 68 H Alkaline Phosphatase 78 LD Total C-Reactive Protein Total Protein 7.2 Albumin 3.7 Triglycerides Cholesterol Total LDL Cholesterol HDL Cholesterol Acetone, Qual 08/05/19 08/05/19 08/05/19 15:00 20:52 21:30 WBC RBC Hgb Hct MCV MCH MCHC RDW Plt Count MPV Absolute Neuts (auto) Neutrophils % Lymphocytes % Monocytes % Eosinophils % Basophils % Nucleated RBC % PT with INR INR Anticoagulation Therapy Puncture Site ABG pH ABG pCO2 at Pt Temp ABG pO2 at Pt Temp ABG HCO3 ABG O2 Sat (Measured) ABG O2 Content ABG Base Excess Magdiel Test O2 Delivery Device Oxygen Flow Rate Vent Mode Vent Rate Mechanical Rate Pressure Support Vent Sodium Potassium Chloride Carbon Dioxide Anion Gap BUN Creatinine Est GFR (CKD-EPI)AfAm Est GFR (CKD-EPI)NonAf POC Glucometer 311 Random Glucose Lactic Acid 2.3 H* 1.7 Calcium Phosphorus Magnesium Total Bilirubin Direct Bilirubin AST ALT Alkaline Phosphatase LD Total C-Reactive Protein Total Protein Albumin Triglycerides Cholesterol Total LDL Cholesterol HDL Cholesterol Acetone, Qual 08/06/19 08/06/19 08/06/19 00:50 05:20 05:20 WBC 15.2 H RBC 5.37 Hgb 15.4 Hct 46.7 MCV 86.8 MCH 28.7 MCHC 33.1 RDW 12.8 Plt Count 286 MPV 9.1 Absolute Neuts (auto) 12.8 H Neutrophils % 83.8 H Lymphocytes % 6.2 L Monocytes % 9.6 Eosinophils % 0.0 Basophils % 0.4 Nucleated RBC % 0 PT with INR INR Anticoagulation Therapy Puncture Site ABG pH ABG pCO2 at Pt Temp ABG pO2 at Pt Temp ABG HCO3 ABG O2 Sat (Measured) ABG O2 Content ABG Base Excess Magdiel Test O2 Delivery Device Oxygen Flow Rate Vent Mode Vent Rate Mechanical Rate Pressure Support Vent Sodium 138 Potassium 3.8 Chloride 101 Carbon Dioxide 24 Anion Gap 12 BUN 10.9 Creatinine 1.0 Est GFR (CKD-EPI)AfAm 104.15 Est GFR (CKD-EPI)NonAf 89.86 POC Glucometer 267 Random Glucose 202 H Lactic Acid Calcium 8.5 Phosphorus Magnesium Total Bilirubin 2.5 H Direct Bilirubin 1.6 H AST 38 H ALT 44 Alkaline Phosphatase 68 LD Total C-Reactive Protein 22.6 H Total Protein 6.1 L Albumin 3.1 L Triglycerides Cholesterol Total LDL Cholesterol HDL Cholesterol Acetone, Qual 08/06/19 08/06/19 05:20 06:20 WBC RBC Hgb Hct MCV MCH MCHC RDW Plt Count MPV Absolute Neuts (auto) Neutrophils % Lymphocytes % Monocytes % Eosinophils % Basophils % Nucleated RBC % PT with INR 12.00 INR 1.02 Anticoagulation Therapy Puncture Site ABG pH ABG pCO2 at Pt Temp ABG pO2 at Pt Temp ABG HCO3 ABG O2 Sat (Measured) ABG O2 Content ABG Base Excess Magdiel Test O2 Delivery Device Oxygen Flow Rate Vent Mode Vent Rate Mechanical Rate Pressure Support Vent Sodium Potassium Chloride Carbon Dioxide Anion Gap BUN Creatinine Est GFR (CKD-EPI)AfAm Est GFR (CKD-EPI)NonAf POC Glucometer 233 Random Glucose Lactic Acid Calcium Phosphorus Magnesium Total Bilirubin Direct Bilirubin AST ALT Alkaline Phosphatase LD Total C-Reactive Protein Total Protein Albumin Triglycerides Cholesterol Total LDL Cholesterol HDL Cholesterol Acetone, Qual Abdominal xray results and images reviewed ASSESSMENT AND PLAN: 44 yom with PMHx of HTN, NIDDM admitted with severe acute pancreatitis, suspect alcoholic. -Severe acute pancreatitis, suspect alcoholic -Suspected early pancreatic tail necrosis -Metabolic acidosis, from above/lactic acidosis - Abnormal LFTs, ?alcohol related, -r/o biliary etiology given hyperbilirubinemia -Hypertensive urgency, suspect from pain, unable to get oral meds -SIRS -NIDDM Plan: Symptoms improved, LFts better. Anion gap resolved. Close monitoring of hemodynamics, serial exams Low threshold for abx if fevers. Aggressive IVF/Pain control with dilaudid Trend chemistry, LFTs, coags. GI/Surgery input noted MRCP. Hydralazine prn, resume po amlodipine BGM/ISS. DVTPPX lovenox Dispo encourage OOB, ambulation as tolerated. discussed with patient.
[2019-08-06] MEDS: LACTATED RINGERS SOLUTION 1,000 ML IV SCH (12:34)
--- NOTE | 2019-08-06 14:29 | PN.GI ---
GI Progress Note Subjective: Complains of worsened abdominal pain No vomiting AXR with some small bowel and colon air distention Reviewed CT scan with Dr. Callahan given nighthawk reading of small focus of pancreatic necrosis at the tail of the pancreas. he though findings equivocal at this point. - Objective Vital Signs: Vital Signs Temperature 98.5 F 08/06/19 10:00 Pulse Rate 105 H 08/06/19 10:00 Respiratory Rate 21 H 08/06/19 10:00 Blood Pressure 166/68 08/06/19 10:00 O2 Sat by Pulse Oximetry (%) 100 08/06/19 09:00 Constitutional: Calm Eyes: No: Sclera Icterus Cardiovascular: Yes: Tachycardia Gastrointestinal Inspection: Yes: Distention ...Auscultate: Yes: Normoactive Bowel Sounds ...Palpate: Yes: Tenderness (Marked TTP mid abdomen) ...Percussion: Yes: Tympanitic (mild tympany) Edema: No (No LE edema) Labs: CBC, BMP 08/06/19 05:20 08/06/19 05:20 INR, PTT INR 1.02 (0.83-1.09) 08/06/19 05:20 Problem List - Problems (1) Pancreatitis Assessment/Plan: Continued significant abdominal pain. abdomen distended. Likely on the basis of third spacing and ileus secondary to pancreatitis. Continue IV Hydration: On LR @ 250cc/hr NPO except meds Transfer to ICU for closer monitoring of hemodynamics Strict I's and O's Pain management If vomiting, worsening abdominal distention, would consider NGT placement Awaiting MRCP Will continue to monitor. If worsening pain, leukocytosis, fevers, will need repeat CT scan with pancreatic protocol (No PO contrast needed) to exclude development of pancreatic necrosis. no need for antibiotics at this time Code(s): K85.90 - ACUTE PANCREATITIS WITHOUT NECROSIS OR INFECTION, UNSP Qualifiers: Chronicity: acute Pancreatitis type: unspecified pancreatitis type Acute pancreatitis complication: unspecified Qualified Code(s): K85.90 - Acute pancreatitis without necrosis or infection, unspecified
--- NOTE | 2019-08-06 16:43 | CONSULT ---
Consultation: REQUESTING PROVIDER: CONSULT REQUEST: We have been asked to medically evaluate this patient for pancreatitis with possible necrosis for closer monitoring in ICU. HISTORY OF PRESENT ILLNESS: Pt is a 44 M with with PMHx of DM and HTN presenting from home with abdominal pain, nausea and vomiting found to have acute pancreatitis. Pt reports waking up with abdominal pain and then vomiting recently ingested food up to 5 times prior to arrival in the hospital. Pt reports being unable to pass stool for the past 3 days. No prior fevers, last travel was 2 months ago to [facility], no other sick contacts. No recent change in diet. Pt in the past would move his bowel's daily with no hematochezia. Pt did not quantify his alcohol consum,ption but acknowledges weekday ingestion of spirits almost daily and weekend binges. Pt has been responding well to fluids and pain mx says he feels improved. Night melvak had reported a possibility of pancreatic necrosis per GI notes, Dr Rizo discussed with Dr Muñoz and pancreatic necrosis is equivocal. AXR 08/06/19-report showed pancreatitis with central bowel and colon air disttension, with no pneumatosis or free air. No organomegaly, possible ascites. Large heart and atelectasis/L infiltrate, which Dr Rizo reports could be due to 3rd spacing/ileus. Abd US 08/05/19- No cholelithiasis/acute cholecystitis, emlarged heterogenous pancreas. CTAP w/contrast 08/05/2019- Acute pancreatitis with moderate pancreatic fluid. No pseudocyst/abscessformation at this time. Diffuse fatty infiltration of liver. We were asked to assess for ICU transfer for closer monitoring. I discussed with the primary team and they agree that patient is improved from prior, mentally alert, not septic or toxic. Pt noted to have elevated BP, HR and tachypneic, D/W primary team about evaluating for alcohol with drawal.We recommend continous tele management for now and ICU transfer if patient's hemodynamic status changes. 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 Has an 18 year old child Drinks significantly over the weekend Has daily shots of spirit FHX DM/HTN- Father- at 980 HTN-mother -80s HTN- other sibling REVIEW OF SYSTEMS: No fevers No hematuria, no burning on micturition, no hematochezia, no syncope PHYSICAL EXAMINATION Vital Signs - 24 hr 08/05/19 08/05/19 08/05/19 18:31 20:00 21:00 Temperature 98.8 F 98.5 F Pulse Rate 88 89 Respiratory 16 20 Rate Blood Pressure 146/100 184/109 H O2 Sat by Pulse 98 100 Oximetry (%) 08/05/19 08/06/19 08/06/19 22:00 04:27 04:45 Temperature 98.9 F Pulse Rate 106 H Respiratory 20 Rate Blood Pressure 167/106 H 185/120 H O2 Sat by Pulse Oximetry (%) 08/06/19 08/06/19 08/06/19 06:45 09:00 10:00 Temperature 98.5 F Pulse Rate 105 H Respiratory 20 21 H Rate Blood Pressure 171/99 H 166/68 O2 Sat by Pulse 100 Oximetry (%) 08/06/19 15:05 Temperature Pulse Rate 111 H Respiratory 24 H Rate Blood Pressure 181/87 H O2 Sat by Pulse Oximetry (%) GENERAL: Awake, alert, and fully oriented, in no acute distress. EYES: Pupils equal, round and reactive to light, extraocular movements intact, sclera anicteric, conjunctiva clear. EARS, NOSE, THROAT: Moist mucous membranes. NECK:supple LUNGS: Reduced Breath sounds b/l lung bases HEART: tachycardic, S1 and S2 without murmur, rub or gallop. ABDOMEN: Distended, reduced BS, firm, nontender (recent pain meds), no guarding , no rebound, no masses. MUSCULOSKELETAL: Normal range of motion at all joints. No CVA tenderness. LOWER EXTREMITIES: 2+ pulses, warm, well-perfused. No calf tenderness. No peripheral edema. NEUROLOGICAL: Cranial nerves II-XII intact. Normal speech. Normal gait. PSYCHIATRIC: Cooperative. Good eye contact. Appropriate mood and affect. SKIN: Warm, dry, normal turgor, no rashes or lesions noted. CBC, BMP 08/06/19 05:20 08/06/19 05:20 Laboratory Results - last 24 hr 08/05/19 08/05/19 08/05/19 15:00 20:52 21:30 WBC RBC Hgb Hct MCV MCH MCHC RDW Plt Count MPV Absolute Neuts (auto) Neutrophils % Lymphocytes % Monocytes % Eosinophils % Basophils % Nucleated RBC % PT with INR INR Sodium Potassium Chloride Carbon Dioxide Anion Gap BUN Creatinine Est GFR (CKD-EPI)AfAm Est GFR (CKD-EPI)NonAf POC Glucometer 311 Random Glucose Lactic Acid 2.3 H* 1.7 Calcium Total Bilirubin Direct Bilirubin AST ALT Alkaline Phosphatase C-Reactive Protein Total Protein Albumin 08/06/19 08/06/19 08/06/19 00:50 05:20 05:20 WBC 15.2 H RBC 5.37 Hgb 15.4 Hct 46.7 MCV 86.8 MCH 28.7 MCHC 33.1 RDW 12.8 Plt Count 286 MPV 9.1 Absolute Neuts (auto) 12.8 H Neutrophils % 83.8 H Lymphocytes % 6.2 L Monocytes % 9.6 Eosinophils % 0.0 Basophils % 0.4 Nucleated RBC % 0 PT with INR INR Sodium 138 Potassium 3.8 Chloride 101 Carbon Dioxide 24 Anion Gap 12 BUN 10.9 Creatinine 1.0 Est GFR (CKD-EPI)AfAm 104.15 Est GFR (CKD-EPI)NonAf 89.86 POC Glucometer 267 Random Glucose 202 H Lactic Acid Calcium 8.5 Total Bilirubin 2.5 H Direct Bilirubin 1.6 H AST 38 H ALT 44 Alkaline Phosphatase 68 C-Reactive Protein 22.6 H Total Protein 6.1 L Albumin 3.1 L 08/06/19 08/06/19 08/06/19 05:20 06:20 12:23 WBC RBC Hgb Hct MCV MCH MCHC RDW Plt Count MPV Absolute Neuts (auto) Neutrophils % Lymphocytes % Monocytes % Eosinophils % Basophils % Nucleated RBC % PT with INR 12.00 INR 1.02 Sodium Potassium Chloride Carbon Dioxide Anion Gap BUN Creatinine Est GFR (CKD-EPI)AfAm Est GFR (CKD-EPI)NonAf POC Glucometer 233 215 Random Glucose Lactic Acid Calcium Total Bilirubin Direct Bilirubin AST ALT Alkaline Phosphatase C-Reactive Protein Total Protein Albumin Active Medications Generic Name Dose Route Start Last Admin Trade Name Freq PRN Reason Stop Dose Admin Amlodipine Besylate 10 mg 08/07/19 10:00 Norvasc - PO DAILY [facility] Enoxaparin Sodium 40 mg 08/05/19 10:00 08/06/19 10:48 Lovenox - SQ 40 mg DAILY [facility] Administration Hydralazine HCl 10 mg 08/05/19 18:13 08/06/19 04:23 Apresoline Injection - IVPUSH 10 mg Q6H PRN Administration HYPERTENSION Hydromorphone HCl 2 mg 08/05/19 11:52 08/06/19 09:50 Dilaudid Vial - IVPB 2 mg Q4H PRN Administration PAIN LEVEL 6-10 Lactated Ringer's 1,000 mls @ 250 mls/hr 08/05/19 12:33 08/06/19 12:34 Lactated Ringers Solution IV 250 mls/hr ASDIR [facility] Administration Insulin Aspart 1 vial 08/05/19 12:00 08/06/19 12:34 Novolog Vial Sliding Scale - SQ 3 unit Q6HPO [facility] Administration Protocol Ondansetron HCl 4 mg 08/05/19 06:55 Zofran Injection IVPUSH Q4H PRN NAUSEA ASSESSMENT/PLAN: Pt is a 44 M with with PMHx of DM and HTN presenting from home with abdominal pain, nausea and vomiting found to have acute pancreatitis. GI #acute pancreatitispossibly alcoholic with initial report of possible necrosis Pt stable at this time, improved from before, pain controlled with meds Will continue to monitor henodynamics on tele, for ICU transfer if hemodynamically unstable On fluid and pain mx per GI/primary team Cont zofran Serial imaging as needed NPO #Abd distension Possibly in setting of ileus from pancreatitis Per GI, if worsening with n/v would benefit from NGT Card #No evidence of hypotension Pt currently with tachycardia, HTN, tachypnea possibly in setting of pain, R/O alcohol withdrawal Denies prior withdrawals or DTs Continue to monitor #HTN Cont mx per primary team- amlodipine, hydralazine Resp Sating well on RA Endo DM Cont ISS ANODIZER Alert, oriented x3 Cont to monitor Dispo: We will continue to follow the patient. Thank you for this consultative opportunity. Visit type - Emergency Visit Emergency Visit: Yes ED Registration Date: 08/05/19 Care time: The patient presented to the Emergency Department on the above date and was hospitalized for further evaluation of their emergent condition. - New Patient This patient is new to me today: Yes Date on this admission: 08/06/19 - Critical Care Critical Care patient: No ATTENDING PHYSICIAN STATEMENT I saw and evaluated the patient. I reviewed the resident's note and discussed the case with the resident. I agree with the resident's findings and plan as documented. SUBJECTIVE: OBJECTIVE: ASSESSMENT AND PLAN:
[2019-08-06 20:38] LABS: EPI CELLS 3.4 /HPF (0-5/HPF); HYALINE CASTS 38 /lpf (0-8); PH,URINE 5.5 (5.0-8.0); URINE APPEARANCE CLOUDY; URINE BACTERIA 3.9 /hpf (NEGATIVE); URINE BILIRUBIN 2+ (NEGATIVE); URINE COLOR ORANGE; URINE GLUCOSE (UA) 2+ (NEGATIVE); URINE KETONE 3+ (NEGATIVE); URINE LEUK ESTERASE NEGATIVE (NEGATIVE); URINE NITRITE POSITIVE (NEGATIVE); URINE PROTEIN 2+ (NEGATIVE); URINE RBC 1 /hpf (0-4); URINE WBC 1 /hpf (0-5)
[2019-08-07] MEDS: HYDROmorphone HCl 2 MG/ML VIAL IVPB PRN ×2 (05:44→16:54)
[2019-08-07] MEDS: hydrALAZINE HCL 20 MG/ML VIAL IVPUSH PRN (05:45)
[2019-08-07] MEDS: INSULIN SLIDING SCALE (NOVOLOG) 1 VIAL SQ SCH ×4 (06:26→17:00)
[2019-08-07 07:13] LABS: BASO % 0.3 % (0-2.0); HEMATOCRIT 38.5 % (35.4-49); HEMOGLOBIN 12.7 GM/dL (11.7-16.9); MCH 28.7 pg (25.7-33.7); MEAN CELL VOLUME 86.9 fl (80-96); MEAN PLT VOLUME 9.4 fl (7.5-11.1); MONO % 8.6 % (3.8-10.2); NEUT % 83.1 % (42.8-82.8); PLATELET COUNT 217 K/MM3 (134-434); RBC 4.43 M/mm3 (4.00-5.60); RDW 13.2 % (11.9-15.9); WHITE BLOOD COUNT 13.8 K/mm3 (4.0-10.0)
[2019-08-07 07:37] LABS: ALBUMIN 2.6 g/dl (3.4-5.0); BILIRUBIN,TOTAL 1.6 mg/dL (0.2-1); BLOOD UREA NITROGEN 7.2 mg/dL (7-18); CALCIUM 8.3 mg/dL (8.5-10.1); CREATININE 0.7 mg/dL (0.55-1.3); POTASSIUM 3.5 mmol/L (3.5-5.1); TOT PROT 5.6 g/dl (6.4-8.2)
--- NOTE | 2019-08-07 08:06 | PN.GI ---
GI Progress Note Subjective: states he is feeing better - eating with family at the bedside - Objective Vital Signs: Vital Signs Temperature 99.9 F H 08/07/19 05:38 Pulse Rate 105 H 08/07/19 05:38 Respiratory Rate 20 08/07/19 06:56 Blood Pressure 189/118 H 08/07/19 05:38 O2 Sat by Pulse Oximetry (%) 100 08/07/19 06:56 Constitutional: No Distress Eyes: Yes: WNL HENT: Yes: WNL Neck: Yes: WNL Cardiovascular: Yes: WNL, Regular Rate and Rhythm Respiratory: Yes: WNL, Regular, CTA Bilaterally Gastrointestinal Inspection: Yes: Distention ...Auscultate: Yes: Other (tympanic ; not tender ; bs normal) Musculoskeletal: Yes: WNL Extremities: Yes: WNL Edema: No Labs: CBC, BMP 08/07/19 05:30 08/07/19 05:30 INR, PTT INR 1.02 (0.83-1.09) 08/06/19 05:20 Problem List - Problems (1) Pancreatitis Assessment/Plan: Pancreatitis complicated by ileus. REC: - c/w hydration ; monitor volume status - monitor cbc / cmet daily - await mrcp - if he develops pain or fever rec repeat CT scan - will f/u Code(s): K85.90 - ACUTE PANCREATITIS WITHOUT NECROSIS OR INFECTION, UNSP Qualifiers: Chronicity: acute Pancreatitis type: unspecified pancreatitis type Acute pancreatitis complication: unspecified Qualified Code(s): K85.90 - Acute pancreatitis without necrosis or infection, unspecified
[2019-08-07] MEDS: amLODIPine BESYLATE 10 MG TABLET (FP) PO SCH (09:12)
[2019-08-07] MEDS: ENOXAPARIN NA (PORCINE) 40 MG/0.4 ML DISP.SYRIN SQ SCH (09:12)
--- NOTE | 2019-08-07 09:20 | PN ---
Physical Exam: SUBJECTIVE: Patient seen and examined, pain markedly improved, hungry, asking for food. OBJECTIVE: Vital Signs Period Temp Pulse Resp BP Sys/Burns Pulse Ox Last 24 Hr 98.1 F-99.9 F 102-121 20-24 153-189/68-118 100-100 Intake & Output 08/04/19 08/05/19 08/06/19 08/07/19 23:59 23:59 23:59 23:59 Intake Total 3000 Output Total 325 300 Balance -325 2700 Weight 175 lb 179 lb General: lying in bed, mild distress from pain Neck: soft, supple HEENT: PERRL, EOMI Chest:decreased breath sounds at bases, no rales or wheezing CVS: S1S2 regular, tachycardic Abdomen: softer today, markedly improved left sided and epigastric tenderness, no voluntary or involuntary guarding or rigidity today, pos bowel sounds Extremities: no pedal edema Laboratory Results - last 24 hr 08/06/19 08/06/19 08/06/19 12:23 19:28 19:40 WBC RBC Hgb Hct MCV MCH MCHC RDW Plt Count MPV Absolute Neuts (auto) Neutrophils % Lymphocytes % Monocytes % Eosinophils % Basophils % Nucleated RBC % Sodium Potassium Chloride Carbon Dioxide Anion Gap BUN Creatinine Est GFR (CKD-EPI)AfAm Est GFR (CKD-EPI)NonAf POC Glucometer 215 206 Random Glucose Calcium Total Bilirubin AST ALT Alkaline Phosphatase C-Reactive Protein Total Protein Albumin Urine Color [place] Urine Appearance Cloudy Urine pH 5.5 Ur Specific [place] 1.034 Urine Protein 2+ H Urine Glucose (UA) 2+ H Urine Ketones 3+ H Urine Blood Negative Urine Nitrite Positive H Urine Bilirubin 2+ H Urine Urobilinogen 1.0 Ur Leukocyte Esterase Negative Urine WBC (Auto) 1 Urine RBC (Auto) 1 Urine Casts (Auto) 38 U Pathogenic Cast Auto 0-4 U Epithel Cells (Auto) 3.4 Urine Bacteria (Auto) 3.9 08/06/19 08/07/19 08/07/19 23:48 05:25 05:30 WBC RBC Hgb Hct MCV MCH MCHC RDW Plt Count MPV Absolute Neuts (auto) Neutrophils % Lymphocytes % Monocytes % Eosinophils % Basophils % Nucleated RBC % Sodium 139 Potassium 3.5 Chloride 100 Carbon Dioxide 26 Anion Gap 14 BUN 7.2 Creatinine 0.7 Est GFR (CKD-EPI)AfAm 131.17 Est GFR (CKD-EPI)NonAf 113.17 POC Glucometer 186 201 Random Glucose 194 H Calcium 8.3 L Total Bilirubin 1.6 H AST 30 ALT 28 Alkaline Phosphatase 67 C-Reactive Protein Total Protein 5.6 L Albumin 2.6 L Urine Color Urine Appearance Urine pH Ur Specific [place] Urine Protein Urine Glucose (UA) Urine Ketones Urine Blood Urine Nitrite Urine Bilirubin Urine Urobilinogen Ur Leukocyte Esterase Urine WBC (Auto) Urine RBC (Auto) Urine Casts (Auto) U Pathogenic Cast Auto U Epithel Cells (Auto) Urine Bacteria (Auto) 08/07/19 08/07/19 05:30 05:30 WBC 13.8 H RBC 4.43 Hgb 12.7 Hct 38.5 D MCV 86.9 MCH 28.7 MCHC 33.0 RDW 13.2 Plt Count 217 D MPV 9.4 Absolute Neuts (auto) 11.4 H Neutrophils % 83.1 H Lymphocytes % 8.0 D Monocytes % 8.6 Eosinophils % 0.0 Basophils % 0.3 Nucleated RBC % 0 Sodium Potassium Chloride Carbon Dioxide Anion Gap BUN Creatinine Est GFR (CKD-EPI)AfAm Est GFR (CKD-EPI)NonAf POC Glucometer Random Glucose Calcium Total Bilirubin AST ALT Alkaline Phosphatase C-Reactive Protein 25.8 H Total Protein Albumin Urine Color Urine Appearance Urine pH Ur Specific [place] Urine Protein Urine Glucose (UA) Urine Ketones Urine Blood Urine Nitrite Urine Bilirubin Urine Urobilinogen Ur Leukocyte Esterase Urine WBC (Auto) Urine RBC (Auto) Urine Casts (Auto) U Pathogenic Cast Auto U Epithel Cells (Auto) Urine Bacteria (Auto) Active Medications Generic Name Dose Route Start Last Admin Trade Name Esdrasq PRN Reason Stop Dose Admin Amlodipine Besylate 10 mg 08/07/19 10:00 08/07/19 09:12 Norvasc - PO 10 mg DAILY [facility] Administration Enoxaparin Sodium 40 mg 08/05/19 10:00 08/07/19 09:12 Lovenox - SQ 40 mg DAILY [facility] Administration Hydralazine HCl 10 mg 08/05/19 18:13 08/07/19 05:45 Apresoline Injection - IVPUSH 10 mg Q6H PRN Administration HYPERTENSION Hydromorphone HCl 1 mg 08/07/19 09:16 Dilaudid Vial - IVPB Q4H PRN PAIN LEVEL 6-10 Lactated Ringer's 1,000 mls @ 150 mls/hr 08/07/19 09:16 Lactated Ringers Solution IV ASDIR [facility] Insulin Aspart 1 vial 08/05/19 12:00 08/07/19 06:26 Novolog Vial Sliding Scale - SQ 3 unit Q6HPO [facility] Administration Protocol Ondansetron HCl 4 mg 08/05/19 06:55 Zofran Injection IVPUSH Q4H PRN NAUSEA ASSESSMENT/PLAN: 44 yom with PMHx of HTN, NIDDM admitted with severe acute pancreatitis, suspect alcoholic. -Severe Acute Pancreatitis, suspect alcoholic -Suspected early pancreatic tail necrosis -Metabolic acidosis, from above/lactic acidosis -Abnormal LFTs, ?alcohol related, -r/o biliary etiology given hyperbilirubinemia -Hypertensive urgency, suspect from pain, unable to get oral meds and aggressive hydration -SIRS -NIDDM Plan: Symptoms improved, LFts better. Anion gap resolved. Abdominal exam improved, patient asking for food. Advance to clears. Serial abdominal exam. Decrease IVF/Dilaudid. Trend chemistry, LFTs, coags. GI/Surgery input noted Follow up MRCP. Hydralazine prn, PO amlodipine. BGM/ISS. DVTPPX Lovenox Dispo encourage OOB, ambulation as tolerated. Discussed with patient and nursing. Visit type - Emergency Visit Emergency Visit: Yes ED Registration Date: 08/05/19 Care time: The patient presented to the Emergency Department on the above date and was hospitalized for further evaluation of their emergent condition. - New Patient This patient is new to me today: No - Critical Care Critical Care patient: No - Discharge Referral Referred to [facility] No
[2019-08-07] MEDS: LACTATED RINGERS SOLUTION 1,000 ML IV SCH (10:40)
--- NOTE | 2019-08-07 11:24 | PN ---
Progress Note (short form) - Note Progress Note: Attending Surgeon Seen in f/u; states he feels better but hasnt had a BM or passed flatus; he has been given a diet; no nausea and/or vomiting. Last Vital Signs Temp Pulse Resp BP Pulse Ox 98.9 F 101 H 20 171/90 H 100 08/07/19 09:35 08/07/19 09:35 08/07/19 09:35 08/07/19 09:35 08/07/19 09:00 abdo-softly distended and tympanitic; non tender; o/w negative. labs noted; GI input noted IMP:EtOH pancreatitis; ileus secondary to same. PLAN: Per primary team and GI; f/u imaging should be considered during hospital course; reconsult us as necessary. Bertin Kingsley MD FACS
[2019-08-07] MEDS ORDERED: INSULIN (NOVOLOG) ASPART 100 UNITS/ML 10ML VIAL ONE (11:29)
[2019-08-08] MEDS: INSULIN SLIDING SCALE (NOVOLOG) 1 VIAL SQ SCH ×5 (00:50→22:04)
[2019-08-08] MEDS: hydrALAZINE HCL 20 MG/ML VIAL IVPUSH PRN (06:17)
[2019-08-08] MEDS: amLODIPine BESYLATE 10 MG TABLET (FP) PO SCH ×2 (06:17→11:16)
[2019-08-08 07:23] LABS: EOS % 0.6 % (0-4.5); HEMATOCRIT 35.1 % (35.4-49); HEMOGLOBIN 11.7 GM/dL (11.7-16.9); LYMPH % 11.6 % (8-40); MCHC 33.3 g/dl (32.0-35.9); MEAN CELL VOLUME 87.1 fl (80-96); MEAN PLT VOLUME 9.4 fl (7.5-11.1); MONO % 11.4 % (3.8-10.2); NEUT % 75.4 % (42.8-82.8); PLATELET COUNT 205 K/MM3 (134-434); RBC 4.04 M/mm3 (4.00-5.60); RDW 13.2 % (11.9-15.9); WHITE BLOOD COUNT 11.8 K/mm3 (4.0-10.0)
--- NOTE | 2019-08-08 07:50 | PN.GI ---
GI Progress Note Subjective: states he is feeling better today - states he had a BM and + flatuce. Tolerating clear liquid diet / no nausea / no chills or fever - Objective Vital Signs: Vital Signs Temperature 98.9 F 08/08/19 06:00 Pulse Rate 101 H 08/08/19 06:00 Respiratory Rate 20 08/08/19 06:00 Blood Pressure 187/104 H 08/08/19 06:00 O2 Sat by Pulse Oximetry (%) 100 08/07/19 20:44 Constitutional: Well Nourished, No Distress, Calm Eyes: Yes: WNL HENT: Yes: WNL Neck: Yes: WNL, Supple Cardiovascular: Yes: WNL, Regular Rate and Rhythm Respiratory: Yes: WNL, Regular, CTA Bilaterally Gastrointestinal Inspection: Yes: Ascites, Distention ...Auscultate: Yes: Normoactive Bowel Sounds, Other (not tender) ...Percussion: Yes: Tympanitic Musculoskeletal: Yes: WNL Extremities: Yes: WNL Edema: No Labs: CBC, BMP 08/08/19 05:30 INR, PTT INR 1.02 (0.83-1.09) 08/06/19 05:20 Problem List - Problems (1) Pancreatitis Assessment/Plan: MRCP reviewed - ascites and peripancreatic fluid / no necrosis REC: - monitor volume status; cbc / cmet daily - clear liquid diet ; if his ileus improves tomorrow may attempt to advance his diet - surgery f/u Code(s): K85.90 - ACUTE PANCREATITIS WITHOUT NECROSIS OR INFECTION, UNSP Qualifiers: Chronicity: acute Pancreatitis type: unspecified pancreatitis type Acute pancreatitis complication: unspecified Qualified Code(s): K85.90 - Acute pancreatitis without necrosis or infection, unspecified
[2019-08-08 08:03] LABS: ALBUMIN 2.5 g/dl (3.4-5.0); BLOOD UREA NITROGEN 4.8 mg/dL (7-18); CALCIUM 8.1 mg/dL (8.5-10.1); CREATININE 0.6 mg/dL (0.55-1.3); PHOSPHOROUS 1.8 mg/dL (2.5-4.9); TOT PROT 5.7 g/dl (6.4-8.2)
[2019-08-08 08:14] LABS: POTASSIUM 2.8 mmol/L (3.5-5.1)
[2019-08-08] MEDS ORDERED: POTASSIUM CHLORIDE TABS 20 MEQ TABLET.ER (FP) PO ONE (08:55)
[2019-08-08] MEDS: KCL 10 MEQ IVPB 10 MEQ/100 ML INFUS.BAG IVPB SCH ×3 (10:23→14:37)
[2019-08-08] MEDS: LACTATED RINGERS SOLUTION 1,000 ML IV SCH (10:23)
[2019-08-08] MEDS: ENOXAPARIN NA (PORCINE) 40 MG/0.4 ML DISP.SYRIN SQ SCH (10:23)
--- NOTE | 2019-08-08 10:54 | PN ---
Physical Exam: SUBJECTIVE: Patient seen and examined, abdominal pain better, passing gas, Ambulating. Wants to continue liquids for today. OBJECTIVE: Vital Signs Period Temp Pulse Resp BP Sys/Burns Pulse Ox Last 24 Hr 98 F-98.9 F 101-113 18-20 159-188/93-111 100 Intake & Output 08/05/19 08/06/19 08/07/19 08/08/19 23:59 23:59 23:59 23:59 Intake Total 4900 1800 Output Total 325 2600 Balance -325 2300 1800 Weight 179 lb General: lying in bed, mild distress from pain Neck: soft, supple HEENT: PERRL, EOMI Chest:decreased breath sounds at bases, no rales or wheezing CVS: S1S2 regular, tachycardic Abdomen: Softer, markedly improved, Mild tenderness eipgastrium/Left sided abdomen, no voluntary or involuntary guarding or rigidity, pos bowel sounds. Extremities: no pedal edema Laboratory Results - last 24 hr 08/05/19 08/07/19 08/07/19 10:50 11:17 16:58 WBC RBC Hgb Hct MCV MCH MCHC RDW Plt Count MPV Absolute Neuts (auto) Neutrophils % Lymphocytes % Monocytes % Eosinophils % Basophils % Nucleated RBC % Sodium Potassium Chloride Carbon Dioxide Anion Gap BUN Creatinine Est GFR (CKD-EPI)AfAm Est GFR (CKD-EPI)NonAf POC Glucometer 293 255 Random Glucose Calcium Phosphorus Magnesium Total Bilirubin AST ALT Alkaline Phosphatase Total Protein Albumin B-Hydroxybutyrate 53.00 H 08/07/19 08/08/19 08/08/19 22:19 05:30 05:30 WBC 11.8 H RBC 4.04 Hgb 11.7 Hct 35.1 L MCV 87.1 MCH 29.0 MCHC 33.3 RDW 13.2 Plt Count 205 MPV 9.4 Absolute Neuts (auto) 8.9 H Neutrophils % 75.4 Lymphocytes % 11.6 D Monocytes % 11.4 H Eosinophils % 0.6 D Basophils % 1.0 D Nucleated RBC % 0 Sodium 138 Potassium 2.8 L* Chloride 96 L Carbon Dioxide 30 Anion Gap 12 BUN 4.8 L Creatinine 0.6 Est GFR (CKD-EPI)AfAm 139.75 Est GFR (CKD-EPI)NonAf 120.58 POC Glucometer 292 Random Glucose 171 H Calcium 8.1 L Phosphorus 1.8 L Magnesium 2.0 Total Bilirubin 2.0 H AST 34 ALT 25 Alkaline Phosphatase 94 Total Protein 5.7 L Albumin 2.5 L B-Hydroxybutyrate 08/08/19 06:04 WBC RBC Hgb Hct MCV MCH MCHC RDW Plt Count MPV Absolute Neuts (auto) Neutrophils % Lymphocytes % Monocytes % Eosinophils % Basophils % Nucleated RBC % Sodium Potassium Chloride Carbon Dioxide Anion Gap BUN Creatinine Est GFR (CKD-EPI)AfAm Est GFR (CKD-EPI)NonAf POC Glucometer 179 Random Glucose Calcium Phosphorus Magnesium Total Bilirubin AST ALT Alkaline Phosphatase Total Protein Albumin B-Hydroxybutyrate Active Medications Generic Name Dose Route Start Last Admin Trade Name Freq PRN Reason Stop Dose Admin Amlodipine Besylate 10 mg 08/07/19 10:00 08/08/19 06:17 Norvasc - PO 10 mg DAILY [facility] Administration Enoxaparin Sodium 40 mg 08/05/19 10:00 08/08/19 10:23 Lovenox - SQ 40 mg DAILY [facility] Administration Hydralazine HCl 10 mg 08/05/19 18:13 08/08/19 06:17 Apresoline Injection - IVPUSH 10 mg Q6H PRN Administration HYPERTENSION Hydromorphone HCl 1 mg 08/07/19 09:16 08/07/19 16:54 Dilaudid Vial - IVPB 1 mg Q4H PRN Administration PAIN LEVEL 6-10 Lactated Ringer's 1,000 mls @ 150 mls/hr 08/07/19 09:16 08/08/19 10:23 Lactated Ringers Solution IV 150 mls/hr ASDIR [facility] Administration Potassium Chloride 10 meq in 100 mls @ 100 mls/hr 08/08/19 09:00 08/08/19 10: 23 Potassium Chloride 10 Meq Premix Ivpb - IVPB 08/08/19 11:59 100 mls/hr Q60M [facility] Administration Insulin Aspart 1 vial 08/08/19 11:00 Novolog Vial Sliding Scale - SQ ACHS [facility] Protocol Ondansetron HCl 4 mg 08/05/19 06:55 Zofran Injection IVPUSH Q4H PRN NAUSEA Home Medications Medication Instructions Recorded Hydrochlorothiazide [Hctz -] 25 mg PO DAILY 07/10/14 Amlodipine Besylate 10 mg PO DAILY 08/05/19 MRCP results reviewed ASSESSMENT/PLAN: 44 yom with PMHx of HTN, NIDDM admitted with severe acute pancreatitis, suspect alcoholic. -Severe Acute Pancreatitis, suspect alcoholic -Suspected early pancreatic tail necrosis -Metabolic acidosis, from above/lactic acidosis -Severe hypokalemia/ -Hypophosphatemia -Bilateral pleural effusions, suspect from aggressive volume resuscitation -Abnormal LFTs, likely alcohol related, -r/o biliary etiology given hyperbilirubinemia -Hypertensive urgency, suspect from pain, unable to get oral meds and aggressive hydration -SIRS -NIDDM Plan: Continues to improve, Ambulating, passing gas MRCP results noted LFtimproved IVF decreased. Continue clears for today. Patient advised aggressive ambulation. Diluadid prn. Trend chemistry, LFTs, coags. GI/Surgery input noted Hydralazine prn, PO amlodipine. BGM/ISS. Add levemir 5 units hs while holding oral hypoglycemics. DVTPPX Lovenox Dispo encourage OOB, ambulation as tolerated. Dc in 48 hours if continues to improve and tolerating diet well. Discussed with patient and nursing. Visit type - Emergency Visit Emergency Visit: Yes ED Registration Date: 08/05/19 Care time: The patient presented to the Emergency Department on the above date and was hospitalized for further evaluation of their emergent condition. - New Patient This patient is new to me today: No - Critical Care Critical Care patient: No - Discharge Referral Referred to [facility] No
[2019-08-08] MEDS ORDERED: SODIUM CHLORIDE IVPB ONE (10:58)
[2019-08-08] MEDS ORDERED: SODIUM PHOSPHATE IVPB ONE (10:58)
[2019-08-08] MEDS ORDERED: INSULIN (NOVOLOG) ASPART 100 UNITS/ML 10ML VIAL ONE (11:19)
[2019-08-08] MEDS: HYDROmorphone HCl 2 MG/ML VIAL IVPB PRN (18:43)
[2019-08-08] MEDS: INSULIN (LEVEMIR) 100 UNITS/ML UNITS SQ SCH (22:03)
[2019-08-09] MEDS: HYDROmorphone HCl 2 MG/ML VIAL IVPB PRN (03:31)
[2019-08-09] MEDS: INSULIN SLIDING SCALE (NOVOLOG) 1 VIAL SQ SCH ×4 (06:03→23:05)
[2019-08-09 07:41] LABS: BASO % 0.8 % (0-2.0); EOS % 1.2 % (0-4.5); LYMPH % 13.4 % (8-40); MCHC 33.3 g/dl (32.0-35.9); MEAN PLT VOLUME 8.9 fl (7.5-11.1); MONO % 13.4 % (3.8-10.2); NEUT % 71.2 % (42.8-82.8); PLATELET COUNT 233 K/MM3 (134-434); RDW 12.9 % (11.9-15.9); WHITE BLOOD COUNT 9.8 K/mm3 (4.0-10.0)
[2019-08-09] MEDS ORDERED: LACTATED RINGERS SOLUTION 1,000 ML IV SCH (07:46)
[2019-08-09 07:53] LABS: ALBUMIN 2.6 g/dl (3.4-5.0); BILIRUBIN,TOTAL 1.7 mg/dL (0.2-1); BLOOD UREA NITROGEN 3.1 mg/dL (7-18); CALCIUM 8.2 mg/dL (8.5-10.1); CREATININE 0.5 mg/dL (0.55-1.3); MAGNESIUM 1.7 mg/dL (1.8-2.4); PHOSPHOROUS 3.1 mg/dL (2.5-4.9); TOT PROT 5.8 g/dl (6.4-8.2)
[2019-08-09] MEDS ORDERED: MAGNESIUM SULF 50% (8.12 MEQ/2 ML-1 GM VIAL) IVPB ONE (08:04)
[2019-08-09 08:13] LABS: POTASSIUM 2.7 mmol/L (3.5-5.1)
[2019-08-09] MEDS ORDERED: POTASSIUM CHLORIDE TABS 20 MEQ TABLET.ER (FP) PO ONE (08:14)
[2019-08-09] MEDS: KCL 10 MEQ IVPB 10 MEQ/100 ML INFUS.BAG IVPB SCH ×3 (09:09→12:00)
[2019-08-09] MEDS: LOSARTAN POTASSIUM 50 MG TABLET (FP) PO SCH (09:10)
[2019-08-09] MEDS: ENOXAPARIN NA (PORCINE) 40 MG/0.4 ML DISP.SYRIN SQ SCH (09:10)
[2019-08-09] MEDS: amLODIPine BESYLATE 10 MG TABLET (FP) PO SCH (09:10)
--- NOTE | 2019-08-09 10:08 | PN ---
Progress Note (short form) - Note Progress Note: HPI: No acute events overnight. No complaints today. Denies shortness of breath , chest pain, palpitations, diarrhea, constipation. Vital Signs Period Temp Pulse Resp BP Sys/Burns Pulse Ox Last 24 Hr 97.3 F-98.8 F 79-97 15-20 146-183/100-116 98-99 PE: Gen: NAD, awake, alert, orientedx3 HEENT: NC/AT, TANJA, sclera anicteric, no xanthelasmas, MMM Neck: No JVD CTA: CTA b/l with no rales. No accessory muscle use. On RA CARD: RRR no murmurs ABD: Soft, nondistended, normoactive BS, minimal TTP in epigastric region, no guarding, no rebound EXT: No edema, warm, 2+ DP pulses b/l CBC, BMP 08/09/19 05:30 08/09/19 06:00 Hepatic Panel Total Bilirubin 1.7 mg/dL (0.2-1) H 08/09/19 06:00 Direct Bilirubin 0.7 mg/dL (0.0-0.2) H 08/09/19 06:00 AST 29 U/L (15-37) 08/09/19 06:00 ALT 24 U/L (13-61) 08/09/19 06:00 Alkaline Phosphatase 93 U/L (45-117) 08/09/19 06:00 Albumin 2.6 g/dl (3.4-5.0) L 08/09/19 06:00 Active Medications Amlodipine Besylate (Norvasc -) 10 mg PO DAILY [facility] Last Admin: 08/09/19 09:10 Dose: 10 mg Enoxaparin Sodium (Lovenox -) 40 mg SQ DAILY [facility] Last Admin: 08/09/19 09:10 Dose: 40 mg Hydralazine HCl (Apresoline Injection -) 10 mg IVPUSH Q6H PRN PRN Reason: HYPERTENSION Last Admin: 08/08/19 06:17 Dose: 10 mg Lactated Ringer's (Lactated Ringers Solution) 1,000 mls @ 100 mls/hr IV ASDIR [facility] Last Admin: 08/09/19 08:00 Dose: 100 mls/hr Insulin Aspart (Novolog Vial Sliding Scale -) 1 vial SQ ACHS [facility]; Protocol Last Admin: 08/09/19 06:03 Dose: 3 units Insulin Detemir (Levemir Vial) 5 units SQ HS [facility] Last Admin: 08/08/19 22:03 Dose: 5 units Losartan Potassium (Cozaar -) 50 mg PO DAILY [facility] Last Admin: 08/09/19 09:10 Dose: 50 mg Ondansetron HCl (Zofran Injection) 4 mg IVPUSH Q4H PRN PRN Reason: NAUSEA A/P: Severe alcoholic pancreatitis with necrosis HTN Hyperglycemia Anion gap metabolic acidosis 2/2 lactic acidosis --Pt's abdominal pain markedly improved --Change pain control to Tylenol PRN; d/c Dilaudid --IVF LR 150cc/hr can d/c after lunch if tolerating --MRCP reviewed and noted --Continue Levemir 5U HS and ISS coverage --Monitor BGM ACHS --Added Losartan 50mg qdaily (ACEi can cause pancreatitis) --Continue Norvasc 10mg qdaily --Hydralazine PRN for elevated SBP FEN: Fluids: LR@150cc/hr; can d/c once tolerates lunch Electrolyte abnormalities: Hypokalemia (Repleted Kdur 40mg BID for 2 dose; and 3x 10mEq IV) Nutrition: Advance diet to soft; if tolerates lunch can d/c fluids PPX: DVT - Lovenox SQ Dispo: Transfer to /S Case discussed with Dr. Rufino Chan, DO - IM PGY-3
--- NOTE | 2019-08-09 11:37 | PN ---
Teaching Attending Note Name of Resident: Go Chan ATTENDING PHYSICIAN STATEMENT I saw and evaluated the patient. I reviewed the resident's note and discussed the case with the resident. I agree with the resident's findings and plan as documented with exceptions below. SUBJECTIVE: Patient seen and examined. markedly improved pain, had solid diet this AM, did well. OBJECTIVE: Vital Signs Period Temp Pulse Resp BP Sys/Burns Pulse Ox Last 24 Hr 99.3 F-99.7 F 79-103 20-22 147-173/84-109 100 Intake & Output 08/06/19 08/07/19 08/08/19 08/09/19 23:59 23:59 23:59 23:59 Intake Total 4900 4250 2220 Output Total 325 2600 2100 Balance -325 2300 2150 2220 Weight 179 lb General: sitting in bed, no acute distress Chest; decreased breath sounds at bases Abdomen: soft, minimal epigastric and left sided tenderness, markedly improved, pos bowel sounds Extremities: no edema Active Medications Amlodipine Besylate (Norvasc -) 10 mg PO DAILY [facility] Last Admin: 08/09/19 09:10 Dose: 10 mg Enoxaparin Sodium (Lovenox -) 40 mg SQ DAILY [facility] Last Admin: 08/09/19 09:10 Dose: 40 mg Hydralazine HCl (Apresoline Injection -) 10 mg IVPUSH Q6H PRN PRN Reason: HYPERTENSION Last Admin: 08/08/19 06:17 Dose: 10 mg Lactated Ringer's (Lactated Ringers Solution) 1,000 mls @ 100 mls/hr IV ASDIR [facility] Last Admin: 08/09/19 08:00 Dose: 100 mls/hr Insulin Aspart (Novolog Vial Sliding Scale -) 1 vial SQ [facility]; Protocol Last Admin: 08/09/19 06:03 Dose: 3 units Insulin Detemir (Levemir Vial) 5 units SQ HS [facility] Last Admin: 08/08/19 22:03 Dose: 5 units Losartan Potassium (Cozaar -) 50 mg PO DAILY [facility] Last Admin: 08/09/19 09:10 Dose: 50 mg Ondansetron HCl (Zofran Injection) 4 mg IVPUSH Q4H PRN PRN Reason: NAUSEA Laboratory Results - last 24 hr 09/29/19 09/29/19 09/30/19 17:28 21:56 05:30 WBC RBC Hgb Hct MCV MCH MCHC RDW Plt Count MPV Absolute Neuts (auto) Neutrophils % Lymphocytes % Monocytes % Eosinophils % Basophils % Nucleated RBC % Sodium Potassium Chloride Carbon Dioxide Anion Gap BUN Creatinine Est GFR (CKD-EPI)AfAm Est GFR (CKD-EPI)NonAf POC Glucometer 276 247 Random Glucose Hemoglobin A1c % 8.7 H Calcium Phosphorus Magnesium Total Bilirubin Direct Bilirubin AST ALT Alkaline Phosphatase Total Protein Albumin 08/09/19 08/09/19 08/09/19 05:30 05:56 06:00 WBC 9.8 RBC 3.80 L Hgb 11.0 L Hct 33.0 L MCV 87.0 MCH 29.0 MCHC 33.3 RDW 12.9 Plt Count 233 MPV 8.9 Absolute Neuts (auto) 7.0 Neutrophils % 71.2 Lymphocytes % 13.4 Monocytes % 13.4 H Eosinophils % 1.2 D Basophils % 0.8 Nucleated RBC % 0 Sodium 137 Potassium 2.7 L* Chloride 95 L Carbon Dioxide 32 Anion Gap 10 BUN 3.1 L Creatinine 0.5 L Est GFR (CKD-EPI)AfAm 150.62 Est GFR (CKD-EPI)NonAf 129.96 POC Glucometer 206 Random Glucose 179 H Hemoglobin A1c % Calcium 8.2 L Phosphorus 3.1 Magnesium 1.7 L Total Bilirubin 1.7 H Direct Bilirubin AST 29 ALT 24 Alkaline Phosphatase 93 Total Protein 5.8 L Albumin 2.6 L 08/09/19 06:00 WBC RBC Hgb Hct MCV MCH MCHC RDW Plt Count MPV Absolute Neuts (auto) Neutrophils % Lymphocytes % Monocytes % Eosinophils % Basophils % Nucleated RBC % Sodium Potassium Chloride Carbon Dioxide Anion Gap BUN Creatinine Est GFR (CKD-EPI)AfAm Est GFR (CKD-EPI)NonAf POC Glucometer Random Glucose Hemoglobin A1c % Calcium Phosphorus Magnesium Total Bilirubin Direct Bilirubin 0.7 H AST ALT Alkaline Phosphatase Total Protein Albumin ASSESSMENT AND PLAN: 44 yom with PMHx of HTN, NIDDM admitted with severe acute pancreatitis, suspect alcoholic. -Severe Acute Pancreatitis, suspect alcoholic -Suspected early pancreatic tail necrosis -Metabolic acidosis, from above/lactic acidosis -Severe hypokalemia -Hypophosphatemia -Hypomagnesemia -Bilateral pleural effusions, suspect from aggressive volume resuscitation -Abnormal LFTs, likely alcohol related, -r/o biliary etiology given hyperbilirubinemia -Hypertensive urgency, suspect from pain, unable to get oral meds and aggressive hydration -SIRS -ETOH abuse/binge -NIDDM Plan: markedly improved Advance to solid diet. taper IVF. D/c narcotics. Encourage ambulation. LFTs normalized MRCP results noted GI/Surgery input noted Replete K/mg/phos prn. PO amlodipine. Add ARB, monitor chemistry. BGM/ISS. Add levemir 5 units hs while holding oral hypoglycemics. ETOH cessation counseling provided. patient reports binge drinking but no regular use. No concerns for withdrawal inhouse. DVTPPX Lovenox Dispo dc in 24 hours if tolerating diet well and no concerns. Discussed with patient and nursing.
[2019-08-09] MEDS: hydrALAZINE HCL 20 MG/ML VIAL IVPUSH PRN (14:59)
--- NOTE | 2019-08-09 15:17 | PN ---
Progress Note (short form) - Note Progress Note: GI f/u Seen around noon Pain improving. 02/17. Tolerated solid diet this am without increased pain or N/ V. Vital Signs Temp 98.6 F 08/09/19 09:00 Pulse 88 08/09/19 14:57 Resp 20 08/09/19 14:57 BP 189/100 H 08/09/19 14:57 Pulse Ox 100 08/09/19 09:00 NAD soft NT mild distension CBC, BMP 08/09/19 05:30 08/09/19 06:00 Impression: Acute pancreatitis, clinically improving PO diet Minimize narcotics ETOh abstinence discussed Can likely be discharged soon with outpatient f/u
[2019-08-09] MEDS ORDERED: LABETALOL HCL 5 MG/1 ML (100MG/20 ML VIAL) IVPUSH ONE (18:07)
[2019-08-09] MEDS ORDERED: ACETAMINOPHEN 1000 MG/100 ML VIAL (NON FORMULARY) IVPB ONE (18:12)
[2019-08-09] MEDS ORDERED: INSULIN (NOVOLOG) ASPART 100 UNITS/ML 10ML VIAL ONE (18:31)
[2019-08-09] MEDS: INSULIN (LEVEMIR) 100 UNITS/ML UNITS SQ SCH (23:04)
[2019-08-09] MEDS ORDERED: ACETAMINOPHEN 325 MG TABLET (FP) PO ONE (23:33)
[2019-08-10] MEDS: INSULIN SLIDING SCALE (NOVOLOG) 1 VIAL SQ SCH ×2 (06:14→12:06)
[2019-08-10] MEDS: LOSARTAN POTASSIUM 50 MG TABLET (FP) PO SCH ×2 (06:25→09:38)
[2019-08-10 07:04] LABS: HEMATOCRIT 32.2 % (35.4-49); HEMOGLOBIN 10.7 GM/dL (11.7-16.9); MCHC 33.2 g/dl (32.0-35.9); MEAN CELL VOLUME 87.3 fl (80-96); PLATELET COUNT 261 K/MM3 (134-434); RBC 3.69 M/mm3 (4.00-5.60); WHITE BLOOD COUNT 9.2 K/mm3 (4.0-10.0)
[2019-08-10 07:49] LABS: ALBUMIN 2.5 g/dl (3.4-5.0); BILIRUBIN,TOTAL 1.4 mg/dL (0.2-1); BLOOD UREA NITROGEN 4.2 mg/dL (7-18); CALCIUM 8.2 mg/dL (8.5-10.1); CREATININE 0.5 mg/dL (0.55-1.3); MAGNESIUM 1.9 mg/dL (1.8-2.4); TOT PROT 5.7 g/dl (6.4-8.2)
[2019-08-10 07:50] LABS: POTASSIUM 2.6 mmol/L (3.5-5.1)
[2019-08-10] MEDS ORDERED: POTASSIUM CHLORIDE TABS 20 MEQ TABLET.ER (FP) PO ONE (08:05)
[2019-08-10] MEDS ORDERED: MAGNESIUM OXIDE 400 MG TABLET (FP) PO ONE (08:09)
[2019-08-10] MEDS: KCL 10 MEQ IVPB 10 MEQ/100 ML INFUS.BAG IVPB SCH ×3 (08:22→12:06)
--- NOTE | 2019-08-10 08:57 | PN ---
Teaching Attending Note Name of Resident: Go Chan ATTENDING PHYSICIAN STATEMENT I saw and evaluated the patient. I reviewed the resident's note and discussed the case with the resident. I agree with the resident's findings and plan as documented with exceptions below. SUBJECTIVE: Patient seen and examined, tolerating diet. Abdominal pain almost resolved. eager to go home. OBJECTIVE: Vital Signs Period Temp Pulse Resp BP Sys/Burns Pulse Ox Last 24 Hr 98 F-99.5 F 78-105 18-20 160-193/92-103 100-100 Intake & Output 08/07/19 08/08/19 08/09/19 08/10/19 23:59 23:59 23:59 23:59 Intake Total 4900 4250 2220 10 Output Total 2600 2100 1900 1050 Balance 2300 2150 320 -1040 Weight 179 lb General: ambulating in bed, no acute distress neck: soft, supple Chest; improved air entry Abdomen:soft, improved distension, minimal epigastric left sided tenderness, no voluntary or involuntary guarding or rigidity, pos bowel sounds Extremities: no edema Home Medications Medication Instructions Recorded Alcohol Antiseptic Pads [Alcohol 1 each TP DAILY #100 med..pad 08/10/19 Prep Pads] Amlodipine Besylate 10 mg PO DAILY #30 tablet 08/10/19 Lancets 1 each MC BID #60 each 08/10/19 Losartan Potassium [Cozaar -] 50 mg PO DAILY #30 tablet 08/10/19 Metformin HCl [Glucophage] 500 mg PO BID #60 tablet 08/10/19 Miscellaneous Medical Supply 1 each LAURA ASDIR #1 kit 08/10/19 [Glucometer Device] Active Medications Amlodipine Besylate (Norvasc -) 10 mg PO DAILY [facility] Last Admin: 08/09/19 09:10 Dose: 10 mg Enoxaparin Sodium (Lovenox -) 40 mg SQ DAILY [facility] Last Admin: 08/09/19 09:10 Dose: 40 mg Hydralazine HCl (Apresoline Injection -) 10 mg IVPUSH Q6H PRN PRN Reason: HYPERTENSION Last Admin: 08/09/19 14:59 Dose: 10 mg Potassium Chloride (Potassium Chloride 10 Meq Premix Ivpb -) 10 meq in 100 mls @ 100 mls/hr IVPB Q60M [facility] Stop: 08/10/19 11:14 Last Admin: 08/10/19 08:22 Dose: 100 mls/hr Insulin Aspart (Novolog Vial Sliding Scale -) 1 vial SQ ACHS [facility]; Protocol Last Admin: 08/10/19 06:14 Dose: 3 units Insulin Detemir (Levemir Vial) 5 units SQ HS [facility] Last Admin: 08/09/19 23:04 Dose: 5 units Losartan Potassium (Cozaar -) 50 mg PO DAILY [facility] Last Admin: 08/10/19 06:25 Dose: 50 mg Ondansetron HCl (Zofran Injection) 4 mg IVPUSH Q4H PRN PRN Reason: NAUSEA Laboratory Results - last 24 hr 08/09/19 08/09/19 08/09/19 11:49 17:55 23:02 WBC RBC Hgb Hct MCV MCH MCHC RDW Plt Count MPV Sodium Potassium Chloride Carbon Dioxide Anion Gap BUN Creatinine Est GFR (CKD-EPI)AfAm Est GFR (CKD-EPI)NonAf POC Glucometer 245 257 248 Random Glucose Calcium Magnesium Total Bilirubin AST ALT Alkaline Phosphatase Total Protein Albumin 08/10/19 08/10/19 08/10/19 05:20 05:20 06:13 WBC 9.2 RBC 3.69 L Hgb 10.7 L Hct 32.2 L MCV 87.3 MCH 29.0 MCHC 33.2 RDW 13.0 Plt Count 261 MPV 9.0 Sodium 137 Potassium 2.6 L* Chloride 95 L Carbon Dioxide 30 Anion Gap 12 BUN 4.2 L Creatinine 0.5 L Est GFR (CKD-EPI)AfAm 150.62 Est GFR (CKD-EPI)NonAf 129.96 POC Glucometer 218 Random Glucose 194 H Calcium 8.2 L Magnesium 1.9 Total Bilirubin 1.4 H AST 25 ALT 22 Alkaline Phosphatase 95 Total Protein 5.7 L Albumin 2.5 L ASSESSMENT AND PLAN: 44 yom with PMHx of HTN, NIDDM admitted with severe acute pancreatitis, suspect alcoholic. -Severe Acute Pancreatitis, suspect alcoholic -Suspected early pancreatic tail necrosis -Metabolic acidosis, from above/lactic acidosis -Severe hypokalemia -Hypophosphatemia -Hypomagnesemia -Bilateral pleural effusions, suspect from aggressive volume resuscitation -Abnormal LFTs, likely alcohol related, -r/o biliary etiology given hyperbilirubinemia -Hypertensive urgency, suspect from pain, unable to get oral meds and aggressive hydration -SIRS -ETOH abuse/binge -NIDDM Plan: markedly improved Tolerating diet, off IVF. ETOH cessation counseling provided. patients reports poorly controlled BP at home. Will start losartan, continue amlodipine. Home BP monitoring counseling provided. A1c noted. Start metformin, Will need close home glucose monitoring and follow up for additional diabetic management. Would hold off on start additional oral hypoglycemics or insulin for now as recovering from pancreatitis. Discussed with patient in detail, counseling provided. LFTs normalized MRCP results noted GI/Surgery input noted Replete K aggressively. DVTPPX Lovenox Dispo dc later today on PO k supple, losartan and close outpatient follow up if no new concerns. Discussed with patient and nursing.
--- NOTE | 2019-08-10 09:17 | DS ---
Physical Exam: SUBJECTIVE: Patient seen and examined OBJECTIVE: Vital Signs Period Temp Pulse Resp BP Sys/Burns Pulse Ox Last 24 Hr 98 F-99.5 F 88-105 18-20 160-193/92-103 100 PHYSICAL EXAM GENERAL: The patient is awake, alert, and fully oriented, in no acute distress. HEAD: Normal with no signs of trauma. EYES: PERRL, extraocular movements intact, sclera anicteric, conjunctiva clear. ENT: Ears normal, nares patent, oropharynx clear without exudates, moist mucous membranes. NECK: Trachea midline, full range of motion, supple. LUNGS: Breath sounds equal, clear to auscultation bilaterally, no wheezes, no crackles, no accessory muscle use. HEART: Regular rate and rhythm, S1, S2 without murmur, rub or gallop. ABDOMEN: Soft, nontender, nondistended, normoactive bowel sounds, no guarding, no rebound, no hepatosplenomegaly, no masses. EXTREMITIES: 2+ pulses, warm, well-perfused, no edema. NEUROLOGICAL: Cranial nerves II through XII grossly intact. Normal speech, gait not observed. PSYCH: Normal mood, normal affect. SKIN: Warm, dry, normal turgor, no rashes or lesions noted. LABS Laboratory Results - last 24 hr 08/09/19 08/09/19 08/09/19 11:49 17:55 23:02 WBC RBC Hgb Hct MCV MCH MCHC RDW Plt Count MPV Sodium Potassium Chloride Carbon Dioxide Anion Gap BUN Creatinine Est GFR (CKD-EPI)AfAm Est GFR (CKD-EPI)NonAf POC Glucometer 245 257 248 Random Glucose Calcium Magnesium Total Bilirubin AST ALT Alkaline Phosphatase Total Protein Albumin 08/10/19 08/10/19 08/10/19 05:20 05:20 06:13 WBC 9.2 RBC 3.69 L Hgb 10.7 L Hct 32.2 L MCV 87.3 MCH 29.0 MCHC 33.2 RDW 13.0 Plt Count 261 MPV 9.0 Sodium 137 Potassium 2.6 L* Chloride 95 L Carbon Dioxide 30 Anion Gap 12 BUN 4.2 L Creatinine 0.5 L Est GFR (CKD-EPI)AfAm 150.62 Est GFR (CKD-EPI)NonAf 129.96 POC Glucometer 218 Random Glucose 194 H Calcium 8.2 L Magnesium 1.9 Total Bilirubin 1.4 H AST 25 ALT 22 Alkaline Phosphatase 95 Total Protein 5.7 L Albumin 2.5 L HOSPITAL COURSE: Date of Admission:08/05/19 Date of Discharge: 08/10/19 Discharge Summary Reason For Visit: PANCREATITIS Current Active Problems Pancreatitis (Acute) Condition: Stable - Instructions Diet, Activity, Other Instructions: You were seen here because you had pancreatitis likely from your alcohol use. You were seen by a rn telehealth and were treated with fluids and other care. Your pain improved and you are able to tolerate eating without any vomiting. MEDICATIONS: Please stop drinking alcohol as every time you drink, you may develop this problem. In addition alcohol can negatively affect your liver and other health conditions. Please continue taking your Norvasc 10mg daily for your blood pressure We added another medication for your blood pressure because it is poorly controlled: Please take Cozaar (also known as Losartan) 50mg daily by mouth. You are started on new diabetes medication Metformin twice daily. You will need close monitoring of your blood sugars and close follow up with your doctor to discuss additional medications for diabetes once current pancreatitis has full resolved. We have given you a blood sugar device which you should check in the mornings and nights and keep a journal of your numbers If you notice Blood sugars < 75 or persistently >140, notify your doctor. Home BP monitoring. If persistently >140/90, please notify your doctor to address treatment. You potassium levels will need close monitoring for now with your doctor. recommend blood work to check potassium and kidneys, BMP (basic metabolic panel ) in 3-5 days with your doctor. Follow-ups: Please follow-up with your primary care physician in 1 week to see how you are doing. If you do not have a primary care doctor we have given you Dr. Mendosa' s information for you to go see. It is important to followup because of your blood pressure and diabetes. Referrals: Wilmer Mendosa MD [Staff Physician] - James Rizo DO [Staff Physician] - Disposition: HOME - Home Medications Comprehensive Discharge Medication List: Ambulatory Orders Alcohol Antiseptic Pads [Alcohol Prep Pads] 1 each TP DAILY #100 med..pad Amlodipine Besylate 10 mg PO DAILY #30 tablet 08/10/19 Lancets 1 each MC BID #60 each 08/10/19 Losartan Potassium [Cozaar -] 50 mg PO DAILY #30 tablet 08/10/19 Metformin HCl [Glucophage] 500 mg PO BID #60 tablet 08/10/19 Miscellaneous Medical Supply [Glucometer Device] 1 each LAURA ASDIR #1 kit - Discharge Referral Referred to [facility] No ATTENDING PHYSICIAN STATEMENT I saw and evaluated the patient. I reviewed the resident's note and discussed the case with the resident. I agree with the resident's findings and plan as documented. SUBJECTIVE: OBJECTIVE: ASSESSMENT AND PLAN:
[2019-08-10] MEDS: amLODIPine BESYLATE 10 MG TABLET (FP) PO SCH (09:32)
[2019-08-10] MEDS: ENOXAPARIN NA (PORCINE) 40 MG/0.4 ML DISP.SYRIN SQ SCH (09:32)
[2019-08-10 15:33] VITALS: BP 161/88; PULSE 94; TEMP 99.6
== END 2019-08-10 16:55 | disposition home or self-care (01) | DRG 282 ==
LOC: JER 22:59 → JERBED 08-05 04:25 → J4W 08-05 18:19
PROVIDERS: ADMIT Internal Medicine; ATTEND Hospitalist
DX: K85.21 Alcohol induced acute pancreatitis with uninfected necrosis (principal); K85.91 Acute pancreatitis with uninfected necrosis, unspecified; I10 Essential (primary) hypertension; E11.65 Type 2 diabetes mellitus with hyperglycemia; E87.2 Acidosis; I16.0 Hypertensive urgency; R65.10 Systemic inflammatory response syndrome (SIRS) of non-infectious origin without acute organ dysfunction; K56.7 Ileus, unspecified; R18.8 Other ascites; E87.6 Hypokalemia; E83.39 Other disorders of phosphorus metabolism; J90 Pleural effusion, not elsewhere classified; R94.5 Abnormal results of liver function studies; E83.42 Hypomagnesemia; F10.10 Alcohol abuse, uncomplicated; Y90.2 Blood alcohol level of 40-59 mg/100 ml
CPT/HCPCS: 36415; 36600; 71045-TC-FY; 74019-TC-FY; 74177-TC; 74181-TC; 76705-TC; 80053; 80061; 81003; 82009; 82010; 82248; 82803; 82962; 83036; 83605; 83615; 83690; 83721; 83735; 84100; 84132; 85025; 85027; 85610; 85730; 86140; 86850; 86900; 86901; 99284-25; J0131; J7030; Q9967

== ENCOUNTER 2022-08-11 10:44 | Observation (INO) | payer OTHER ==
[2022-08-11 12:12] LABS: BASO % 1.8 % (0-2.0); EOS % 1.1 % (0-4.5); HEMATOCRIT 49.3 % (35.4-49); HEMOGLOBIN 15.9 GM/dL (11.7-16.9); LYMPH % 20.6 % (8-40); MCH 29.1 pg (25.7-33.7); MCHC 32.2 g/dl (32.0-35.9); MEAN CELL VOLUME 90.5 fl (80-96); MEAN PLT VOLUME 9.3 fl (7.5-11.1); MONO % 6.5 % (3.8-10.2); PLATELET COUNT 274 10^3/uL (134-434); RBC 5.45 M/mm3 (4.00-5.60); RDW 12.8 % (11.9-15.9)
[2022-08-11 12:29] LABS: CHLORIDE 93 mmol/L (98-107); SODIUM 133 mmol/L (136-145)
[2022-08-11 12:31] LABS: ALBUMIN 4.2 g/dl (3.4-5.0); CALCIUM 10.2 mg/dL (8.5-10.1)
[2022-08-11 12:33] LABS: ANION GAP 13 MMOL/L (8-16); BLOOD UREA NITROGEN 18.6 mg/dL (7-18); CO2 27 mmol/L (21-32)
[2022-08-11 12:35] LABS: CREATININE 1.3 mg/dL (0.55-1.3); SGOT/AST 27 U/L (15-37); SGPT/ALT 40 U/L (13-61)
[2022-08-11 12:36] LABS: BILIRUBIN,TOTAL 0.4 mg/dL (0.2-1); TOT PROT 8.5 g/dl (6.4-8.2)
[2022-08-11 12:37] LABS: ALK PHOS 111 U/L (45-117)
[2022-08-11 12:39] LABS: GLUCOSE,RANDOM 471 mg/dL (74-106); LIPASE 1901 U/L (73-393)
[2022-08-11] MEDS ORDERED: SODIUM CHLORIDE 0.9% 500 ML INFUS.BAG IV ONE (12:43)
[2022-08-11 13:39] LABS: TRIGLYCERIDES 229 mg/dL (0-150)
[2022-08-11] MEDS ORDERED: amLODIPine BESYLATE 5 MG TABLET (FP) PO ONE (14:10)
[2022-08-11] MEDS ORDERED: amLODIPine BESYLATE 5 MG TABLET (FP) ONE (14:22)
[2022-08-11 16:36] LABS: URINE APPEARANCE CLEAR; URINE COLOR YELLOW
[2022-08-11 16:37] LABS: PH,URINE 5.5 (5.0-8.0); URINE BILIRUBIN NEGATIVE (NEGATIVE); URINE GLUCOSE (UA) 4+ (NEGATIVE); URINE KETONE TRACE (NEGATIVE); URINE PROTEIN TRACE (NEGATIVE); URINE UROBILINOGEN 0.2 mg/dL (0.2-1.0)
[2022-08-11 16:38] LABS: EPI CELLS 1 /uL (0-25.1); HYALINE CASTS 0.1 /uL (0-3.1); URINE BACTERIA 7 /uL (0-1359); URINE LEUK ESTERASE NEGATIVE (NEGATIVE); URINE NITRITE NEGATIVE (NEGATIVE); URINE RBC 3 /uL (0-23.9); URINE WBC 2 /uL (0-25.8)
[2022-08-11] MEDS ORDERED: glipiZIDE 5 MG TABLET (FP) ONE (17:27)
[2022-08-11] MEDS: glipiZIDE 5 MG TABLET (FP) PO SCH (17:34)
[2022-08-11] MEDS: SODIUM CHLORIDE 1,000 ML IV SCH ×2 (17:37→20:22)
[2022-08-11] MEDS: INSULIN (NOVOLOG) ASPART 100 UNITS/ML 10ML VIAL SQ SCH ×2 (17:41→21:44)
[2022-08-11] MEDS ORDERED: LISINOPRIL 20 MG TABLET PO ONE (18:52)
[2022-08-11] MEDS: POLYETHYLENE GLYCOL (HEALTHYLAX) 3350 17 GM PACKET PO SCH (19:02)
[2022-08-11] MEDS ORDERED: ACETAMINOPHEN 1000 MG/100 ML BAG IVPB ONE (21:17)
[2022-08-11] MEDS ORDERED: MINERAL OIL ENEMA 133 ML ENEMA RC ONE (21:20)
[2022-08-11] MEDS ORDERED: INSULIN (NOVOLOG) ASPART 100 UNITS/ML 10ML VIAL ONE (21:43)
[2022-08-12] MEDS ORDERED: ACETAMINOPHEN 1000 MG/100 ML BAG IVPB ONE (04:32)
[2022-08-12] MEDS: glipiZIDE 5 MG TABLET (FP) PO SCH ×2 (06:05→17:17)
[2022-08-12] MEDS: SODIUM CHLORIDE 1,000 ML IV SCH (06:06)
[2022-08-12] MEDS: INSULIN (NOVOLOG) ASPART 100 UNITS/ML 10ML VIAL SQ SCH ×4 (06:08→21:41)
[2022-08-12] MEDS ORDERED: amLODIPine BESYLATE 10 MG TABLET (FP) PO SCH ×2 (07:05→10:00)
[2022-08-12 09:37] LABS: BLOOD UREA NITROGEN 8.7 mg/dL (7-18)
[2022-08-12 09:40] LABS: BILIRUBIN,TOTAL 0.6 mg/dL (0.2-1); CREATININE 0.8 mg/dL (0.55-1.3); TOT PROT 6.7 g/dl (6.4-8.2)
[2022-08-12 09:41] LABS: ALBUMIN 3.3 g/dl (3.4-5.0); CALCIUM 8.6 mg/dL (8.5-10.1)
[2022-08-12] MEDS: POLYETHYLENE GLYCOL (HEALTHYLAX) 3350 17 GM PACKET PO SCH ×2 (09:49→21:39)
[2022-08-12] MEDS ORDERED: LISINOPRIL 20 MG TABLET PO SCH (10:00)
[2022-08-12] MEDS ORDERED: hydrALAZINE HCL 25 MG TABLET (FP) PO ONE (12:17)
[2022-08-13] MEDS: INSULIN (NOVOLOG) ASPART 100 UNITS/ML 10ML VIAL SQ SCH ×2 (06:28→11:55)
[2022-08-13] MEDS: glipiZIDE 5 MG TABLET (FP) PO SCH (06:28)
[2022-08-13] MEDS ORDERED: LISINOPRIL 20 MG TABLET PO SCH (07:00)
[2022-08-13] MEDS ORDERED: amLODIPine BESYLATE 10 MG TABLET (FP) PO SCH (07:00)
[2022-08-13 08:57] LABS: LIPASE 1024 U/L (73-393)
[2022-08-13 09:01] LABS: CHOLESTEROL 183 mg/dL (50-200); LDL CHOLESTEROL (ONLY SJRH) 117 mg/dL (5-100); TRIGLYCERIDES 117 mg/dL (0-150)
[2022-08-13 09:03] LABS: HDL CHOLESTEROL 43 mg/dL (40-60)
[2022-08-13] MEDS: POLYETHYLENE GLYCOL (HEALTHYLAX) 3350 17 GM PACKET PO SCH (10:23)
[2022-08-13 10:36] VITALS: RESP 18
[2022-08-13] MEDS ORDERED: hydrALAZINE HCL 25 MG TABLET (FP) PO ONE (10:46)
[2022-08-13 12:49] VITALS: BMI 27.3
[2022-08-13 14:02] VITALS: BP 148/84; PULSE 81; TEMP 99.2
== END 2022-08-13 15:02 | disposition home or self-care (01) ==
LOC: JER 10:44 → INTOOBSV 13:24 → JERBED 13:24 → UNDOADMOB 13:24 → JERBED 18:48 → J7W 18:48 → JERBED 08-12 13:07 → J7W 08-12 13:07
PROVIDERS: ADMIT Internal Medicine; ATTEND Internal Medicine
PROC: 3E033NZ Introduction of Analgesics, Hypnotics, Sedatives into Peripheral Vein, Percutaneous Approach (ICD-10-PCS; principal; 2022-08-12)
PROC: 3E013VG Introduction of Insulin into Subcutaneous Tissue, Percutaneous Approach (ICD-10-PCS; 2022-08-12)
PROC: 3E0337Z Introduction of Electrolytic and Water Balance Substance into Peripheral Vein, Percutaneous Approach (ICD-10-PCS; 2022-08-12)
DX: R00.2 Palpitations (principal); R14.0 Abdominal distension (gaseous); I10 Essential (primary) hypertension; E11.9 Type 2 diabetes mellitus without complications; Z85.07 Personal history of malignant neoplasm of pancreas
CPT/HCPCS: 36415; 71046-TC-FY; 74177-TC; 80053; 80061; 81003; 82010; 82962; 83036; 83690; 84478; 84484; 85025; 86140; 87045; 87046; 87205; 87209; 87324; 87449; 93005; 93010; 96361; 96372; 96374; 96375; 99285-25; C9803-CS; G0378; Q9967; U0003; U0005

== ENCOUNTER 2022-09-15 06:27 | Emergency (ER) | payer OTHER ==
[2022-09-15 06:54] VITALS: BP 172/96; PULSE 78; RESP 18; TEMP 98; BMI 26.7
[2022-09-15 08:47] LABS: ALBUMIN 4.4 g/dl (3.4-5.0); BLOOD UREA NITROGEN 8.2 mg/dL (7-18); CALCIUM 10.5 mg/dL (8.5-10.1)
[2022-09-15 08:49] LABS: CREATININE 1.1 mg/dL (0.55-1.3)
[2022-09-15] MEDS ORDERED: KETOROLAC TROMETHAMINE 15 MG/ML VIAL IVPUSH ONE (08:50)
[2022-09-15 08:51] LABS: BILIRUBIN,TOTAL 0.9 mg/dL (0.2-1); TOT PROT 8.3 g/dl (6.4-8.2)
[2022-09-15] MEDS ORDERED: KETOROLAC TROMETHAMINE 15 MG/ML VIAL ONE (09:06)
[2022-09-15 09:13] LABS: BASO % 0.8 % (0-2.0); EOS % 1.1 % (0-4.5); HEMATOCRIT 42.4 % (35.4-49); LYMPH % 16.8 % (8-40); MCH 29.7 pg (25.7-33.7); MCHC 33.1 g/dl (32.0-35.9); MEAN CELL VOLUME 89.6 fl (80-96); MEAN PLT VOLUME 8.5 fl (7.5-11.1); MONO % 7.3 % (3.8-10.2); PLATELET COUNT 249 10^3/uL (134-434); RBC 4.73 M/mm3 (4.00-5.60); RDW 12.9 % (11.9-15.9); WHITE BLOOD COUNT 10.9 K/mm3 (4.0-10.0)
[2022-09-15] MEDS ORDERED: LIDOCAINE 1%/EPI 1:100000 (20 ML MULTI DOSE VIAL) ONE (13:43)
== END 2022-09-15 15:03 | disposition home or self-care (01) ==
LOC: JER 06:27
PROC: 3E0333Z Introduction of Anti-inflammatory into Peripheral Vein, Percutaneous Approach (ICD-10-PCS; principal; 2022-09-15)
DX: J36 Peritonsillar abscess (principal)
CPT/HCPCS: 0241U-QW; 36415; 70491-TC; 71046-TC-FY; 80053; 85025; 87040; 87070; 87651; 99285-25; Q9967